=== PATIENT | female | born 1990 | race Caucasian/White ===

== ENCOUNTER → 2016-10-20 | Outpatient (CLI) | payer BC ==
[2016-10-22 01:36] LABS: CHLAMYDIA TRACH RNA*** NOT DETECTED (NOT DETECTED); GC (NEIS GONORRHOEAE)RNA** NOT DETECTED (NOT DETECTED)
== END | disposition home or self-care (01) ==
LOC: C.LABSPEC 12:06
PROVIDERS: ATTEND Physician Assistant
DX: Z01.419 Encounter for gynecological examination (general) (routine) without abnormal findings (principal)

== ENCOUNTER → 2016-10-20 | Outpatient (CLI) | payer BC | END | disposition home or self-care (01) | LOC: C.PAPS 13:30 | PROVIDERS: ATTEND Physician Assistant | DX: Z01.419 Encounter for gynecological examination (general) (routine) without abnormal findings (principal) ==

== ENCOUNTER 2017-05-19 10:46 | Emergency (ER) | payer BC, OTHER ==
[~2017-05-19] VITALS: Ht 157.5 cm; Wt 62.4 kg
[2017-05-19 10:56] VITALS: TEMP 36.7; Ht 157.5 cm; Wt 62.4 kg
[2017-05-19] MEDS ORDERED: CLR10 PO (11:22)
[2017-05-19 11:29] LABS: BASO % 0.3 %; BASO ABS # 0.02 K/uL (0-0.2); EOS % 0.9 %; EOS ABS # 0.06 K/uL (0-0.5); HEMATOCRIT 41.3 % (37-47); IG# 0.01 K/uL (0.00-0.02); LYMPH % 34.5 %; LYMPH ABS # 2.27 K/uL (1.2-3.4); MEAN CELL VOLUME 88.6 fL (80-100); MEAN CORPUSCULAR HGB CONC 33.9 g/dl (32-36); MONO % 5.5 %; MONO ABS # 0.36 K/uL (0.11-0.59); NEUT % 58.6 %; NEUT ABS # 3.86 K/uL (1.4-6.5); PLATELET COUNT 237 K/uL (130-400); RED CELL DISTRIBUTION WIDTH SD 41.9 fL (36.4-46.3); WHITE BLOOD COUNT 6.58 K/uL (4.8-10.8)
--- NOTE | 2017-05-19 11:29 | EMERGENCY ROOM VISIT NOTE ---
History First contact with patient: 11:06 Chief Complaint: FLANK PAIN Stated Complaint: ABDOMINAL PAIN Nursing Triage Summary: pt reports she went to urgent care for abd pain sent here for blood in urine and possible kidney stone eval History of Present Illness The patient is a 26 year old female who presents to the Emergency Room with complaints of right lower quadrant abdominal pain which began this morning. She states she was concerned about appendicitis, as her boyfriend had appendicitis in the past, so she went to urgent care to be evaluated. At urgent care a urinalysis was performed, which was positive for blood. The urgent care was concerned for a possible kidney stone, so the patient was sent here to the emergency department. The patient describes the pain as dull, and states it is mostly located in the right lower quadrant. She states there is no pain on palpation, but when asked if she is experiencing back pain, she states she is experiencing some upper left sided back pain, which she attributes to shoveling snow. The pain she is experiencing in the back is up near her shoulder blades. She denies history of kidney stones, and states she has had no urinary symptoms including burning, urinary frequency, or blood in the urine. She has not recently been ill, has not had a fever, has not had any changes in bowel movements, cough, chest pain, or dyspnea. The patient states the pain is intermittent, worse with movement and better with rest and sitting still. Her last menstrual period ended on May 10. The patient is sexually active, but is not on control. She states there is no chance for . Review of Systems A complete 10 point review of systems was reviewed with the patient with pertinent positives and negatives as per history of present illness. All else were negative. Past Medical/Surgical History Allergic rhinitis Social History Smoking Status: Never Smoker Smokeless Tobacco Use: No Alcohol Use: none Drug Use: none Marital Status: in relationship Housing Status: lives with significant other Occupation Status: employed Current/Historical Medications Scheduled Loratadine (Claritin), 10 MG PO DAILY Allergies None Physical Exam Vital Signs Date Time Temp Pulse Resp B/P (MAP) Pulse Ox O2 Delivery O2 Flow Rate FiO2 05/19/17 13:59 98 98 05/19/17 12:37 71 16 137/82 99 Room Air 05/19/17 10:56 36.7 86 18 137/86 100 Room Air Physical Exam VITALS: Vitals are noted on the nurse's note and reviewed by myself. Vital signs stable. GENERAL: This is a 26-year-old white female, in no acute distress, nondiaphoretic, well-developed well-nourished. SKIN: The skin was without rashes, erythema, edema, or bruising. There is no tenting of the skin. Capillary reflex less than 2 seconds. HEAD: Normocephalic atraumatic. EARS: External auditory canals clear, tympanic membranes pearly sanchez without erythema or effusion bilaterally. EYES: Pupils equal round and reactive to light and accommodation. Conjunctivae without injection, sclerae without icterus. Extraocular movements intact. NOSE: Patent, turbinates without inflammation or discharge. No sinus tenderness. MOUTH: Mucous membranes moist. Tonsils are not enlarged. Pharynx without erythema or exudate. Uvula midline. Airway patent. Tongue does not deviate. NECK: Supple without nuchal rigidity. No lymphadenopathy. No thyromegaly. Cervical spine is nontender. No JVD. HEART: Regular rate and rhythm without murmurs gallops or rubs. LUNGS: Clear to auscultation bilaterally without wheezes, rales or rhonchi. No dullness to percussion. No retractions or accessory muscle use. ABDOMEN: Positive bowel sounds x 4. Normal tympanic percussion. Soft, nontender, without masses or organomegaly. Newamn sign negative. No guarding or rebound tenderness. Negative Rovsing's. Mild left CVA tenderness, but no tenderness in the right flank. MUSCULOSKELETAL: No muscle atrophy, erythema, or edema noted. Full range of motion without joint tenderness in all extremities. No tenderness to palpation. Normal gait. Strength 5/5 throughout. NEURO: Patient was alert and oriented to person place and time. Normal sensation to light and sharp touch. Deep tendon reflexes 2+ throughout. No focal neurological deficits. Medical Decision & Procedures ER Provider Diagnostic Interpretation: Urine dipstick was positive for blood. No signs of infection. Urine test was negative. CBC was without leukocytosis, anemia, thrombocytopenia. PRP did not show any significant renal, hepatic, electrolyte abnormalities. Lipase was normal. KUB CLINICAL HISTORY: RLQ, left flank pain, hematuria flank pain. Hematuria. COMPARISON STUDY: No previous studies for comparison. FINDINGS: The soft tissues, psoas shadows, renal outlines and intestinal gas pattern appear normal. There is no evidence for bowel obstruction. No abnormal abdominal calcifications are seen. IMPRESSION: Normal study. The above report was generated using voice recognition software. It may contain grammatical, syntax or spelling errors. Electronically signed by: Leo Vargas M.D. 05/19/2017 11:55 AM Dictated Date/Time: 05/19/2017 11:[address] SCAN OF THE ABDOMEN AND PELVIS WITHOUT CONTRAST CLINICAL HISTORY: hematuria, RLQ pain COMPARISON STUDY: No previous studies for comparison. TECHNIQUE: CT scan of the abdomen and pelvis was performed from the lung bases to the proximal femurs. Images are reviewed in the axial, sagittal, and coronal planes. IV contrast was not administered for this examination. A dose lowering technique was utilized adhering to the principles of ALARA. CT DOSE: 480.10 mGy.cm FINDINGS: Lower chest: The heart is normal in size and configuration, without pericardial effusion. The lung bases and pleural spaces are clear. Liver: The unenhanced liver is normal in size, contour, and attenuation. There is no intrahepatic biliary ductal dilatation. Gallbladder: Unremarkable. Spleen: Normal in size and attenuation. Pancreas: Unremarkable. Adrenal glands: Unremarkable. Kidneys: No renal ureteral or bladder calculi are visualized. There is mild fullness of the right renal collecting system. Given the clinical history this could be secondary to a recently passed calculus. Bowel: There are no transition zones indicate bowel obstruction. The appendix appears normal. There is no acute diverticulitis. There is moderate colonic stool. Peritoneum: There is trace free pelvic fluid likely physiologic. Vasculature: The abdominal aorta is normal in course and caliber. Adenopathy: None. Pelvic viscera: The bladder, and pelvic viscera are unremarkable. Skeletal structures: No destructive osseous lesions are seen. IMPRESSION: 1. No evidence of bowel obstruction. No evidence of free air 2. Normal appendix 3. No renal, ureteral, or bladder calculi identified 4. Mild fullness the right renal collecting system. Given the clinical history, this potentially could be secondary to a recently passed calculus Electronically signed by: Roni Pinto M.D. 05/19/2017 12:48 PM Dictated Date/Time: 05/19/2017 12:44 PM Laboratory Results 05/19/17 11:12 Red Blood Count 4.66, Mean Corpuscular Volume 88.6, Mean Corpuscular Hemoglobin 30.0, Mean Corpuscular Hemoglobin Concent 33.9, Mean Platelet Volume 11.0, Neutrophils (%) (Auto) 58.6, Lymphocytes (%) (Auto) 34.5, Monocytes (%) (Auto) 5.5, Eosinophils (%) (Auto) 0.9, Basophils (%) (Auto) 0.3, Neutrophils # (Auto) 3.86, Lymphocytes # (Auto) 2.27, Monocytes # (Auto) 0.36, Eosinophils # (Auto) 0.06, Basophils # (Auto) 0.02 05/19/17 11:12 Test 05/19/17 11:12 White Blood Count 6.58 K/uL (4.8-10.8) Red Blood Count 4.66 M/uL (4.2-5.4) Hemoglobin 14.0 g/dL (12.0-16.0) Hematocrit 41.3 % (37-47) Mean Corpuscular Volume 88.6 fL (80-100) Mean Corpuscular Hemoglobin 30.0 pg (25-34) Mean Corpuscular Hemoglobin Concent 33.9 g/dl (32-36) Platelet Count 237 K/uL (130-400) Mean Platelet Volume 11.0 fL (7.4-10.4) Neutrophils (%) (Auto) 58.6 % Lymphocytes (%) (Auto) 34.5 % Monocytes (%) (Auto) 5.5 % Eosinophils (%) (Auto) 0.9 % Basophils (%) (Auto) 0.3 % Neutrophils # (Auto) 3.86 K/uL (1.4-6.5) Lymphocytes # (Auto) 2.27 K/uL (1.2-3.4) Monocytes # (Auto) 0.36 K/uL (0.11-0.59) Eosinophils # (Auto) 0.06 K/uL (0-0.5) Basophils # (Auto) 0.02 K/uL (0-0.2) RDW Standard Deviation 41.9 fL (36.4-46.3) RDW Coefficient of Variation 13.0 % (11.5-14.5) Immature Granulocyte % (Auto) 0.2 % Immature Granulocyte # (Auto) 0.01 K/uL (0.00-0.02) Anion Gap 9.0 mmol/L (3-11) Est Creatinine Clear Calc Drug Dose 132.2 ml/min Estimated GFR () > 150.0 Estimated GFR (Non- 129.8 BUN/Creatinine Ratio 17.1 (10-20) Calcium Level 9.1 mg/dl (8.5-10.1) Total Bilirubin 0.4 mg/dl (0.2-1) Aspartate Amino Transf (AST/SGOT) 20 U/L (15-37) Alanine Aminotransferase (ALT/SGPT) 21 U/L (12-78) Alkaline Phosphatase 72 U/L (45-117) Total Protein 7.9 gm/dl (6.4-8.2) Albumin 4.2 gm/dl (3.4-5.0) Globulin 3.7 gm/dl (2.5-4.0) Albumin/Globulin Ratio 1.1 (0.9-2) Lipase 91 U/L (73-393) ED Course The patient was seen and evaluated as above. IV access obtained, labs drawn. I did offer pain medication and/or anti-emetics, the patient declines. KUB was ordered and performed. This was not specific for obvious ureteral stone. I discussed this finding with the patient at bedside, and did offer further imaging with CT scan. Because the patient has not had a history of kidney stones and the pain was in the right lower quadrant, she does wish to proceed with imaging to evaluate for possible stone. CT scan was ordered and performed. I discussed the results with the patient at bedside. I discussed follow-up care and outpatient management. I did offer pain medication, and the patient declines. Discharge instructions reviewed, and the patient was discharged home in good condition. Medical Decision Etiologies such as renal colic, appendicitis, diverticulitis, mesenteric ischemia, aortic pathology, infections, inflammatory bowel disease, PUD, biliary pathology, UTI, as well as others were entertained. This is a 26-year-old female patient presents to the emergency department today complaining of right lower quadrant abdominal pain which began this morning, but has improved since she has arrived to the emergency department. She was seen at urgent care, and hematuria was noted on urinalysis. Here in the emergency department, the patient states she is experiencing significantly less pain than she was experiencing this morning. CT scan findings were consistent with possible recently passed stone. I discussed this with the patient, and she states this does make sense based on her symptoms and the progression this morning. The patient will be treated symptomatically and provided with a urine strainer in case she has not yet passed the stone through the bladder and urethra. She was encouraged to follow up outpatient with her PCP for ongoing management and return for significantly worsening symptoms. Medication Reconcilliation Current Medication List: was personally reviewed by me Blood Pressure Screening Patient's blood pressure: Normal blood pressure Impression Primary Impression: Right lower quadrant abdominal pain Additional Impression: Renal colic Departure Information Dispostion Home / Self-Care Condition GOOD Referrals Stefani BOOKER M.D. (PCP) Patient Instructions ED Stone Renal Passed, [facility] Additional Instructions You have been treated in the Emergency Department today for a Kidney Stone ( Nephrolithiasis). Imaging did show some signs that you did are very likely passed stone from the ureter at least into the bladder. For pain control, you can use the following [id number] medicines (if >12 yo): Ibuprofen(Motrin, Advil) may be used for fever or pain. Use 600mg every six hours as needed. Take with food. Avoid using more than 2400mg in a 24 hour period. Do not use 2400mg per day for more than three consecutive days without physician direction. Prolonged inappropriate use can lead to stomach upset or ulcers. (AND/OR) Acetaminophen(Tylenol) may be used for fever or pain. Use 1000mg every six hours as needed. Avoid using more than 3000mg in a 24 hour period. You have been provided a strainer and specimen collection cup. You should strain your urine to collect any passed stones. Your stones can be placed into the specimen cup and taken to your Urologist for further evaluation. You should follow-up with your PCP regarding the pain and if you continue to experience discomfort and do not notice a passed stone in the urine. Return to the Emergency Department if your symptoms persist despite the treatment plan outlined above or if you develop the following symptoms: intractable pain, fever, chills, or large amounts of blood in your urine. Problem Qualifiers
[2017-05-19 11:48] LABS: ALBUMIN 4.2 gm/dl (3.4-5.0); ALT/SGPT 21 U/L (12-78); BLOOD UREA NITROGEN 10 mg/dl (7-18); CALCIUM 9.1 mg/dl (8.5-10.1); CARBON DIOXIDE 25 mmol/L (21-32); CREATININE 0.57 mg/dl (0.60-1.20); GLUCOSE 87 mg/dl (70-99); LIPASE 91 U/L (73-393); POTASSIUM 3.9 mmol/L (3.5-5.1); SODIUM 138 mmol/L (136-145)
[2017-05-19 11:51] LABS: ALKALINE PHOSPHATASE 72 U/L (45-117); AST/SGOT 20 U/L (15-37); TOTAL PROTEIN 7.9 gm/dl (6.4-8.2)
--- NOTE | 2017-05-19 11:56 | DIAGNOSTIC IMAGING REPORT ---
KUB CLINICAL HISTORY: RLQ, left flank pain, hematuria flank pain. Hematuria. COMPARISON STUDY: No previous studies for comparison. FINDINGS: The soft tissues, psoas shadows, renal outlines and intestinal gas pattern appear normal. There is no evidence for bowel obstruction. No abnormal abdominal calcifications are seen. IMPRESSION: Normal study. The above report was generated using voice recognition software. It may contain grammatical, syntax or spelling errors. Electronically signed by: Leo Vargas M.D. 05/19/2017 11:55 AM Dictated Date/Time: 05/19/2017 11:54 AM
[2017-05-19 12:37] VITALS: BP 137/82
--- NOTE | 2017-05-19 12:49 | DIAGNOSTIC IMAGING REPORT ---
CT SCAN OF THE ABDOMEN AND PELVIS WITHOUT CONTRAST CLINICAL HISTORY: hematuria, RLQ pain COMPARISON STUDY: No previous studies for comparison. TECHNIQUE: CT scan of the abdomen and pelvis was performed from the lung bases to the proximal femurs. Images are reviewed in the axial, sagittal, and coronal planes. IV contrast was not administered for this examination. A dose lowering technique was utilized adhering to the principles of ALARA. CT DOSE: 480.10 mGy.cm FINDINGS: Lower chest: The heart is normal in size and configuration, without pericardial effusion. The lung bases and pleural spaces are clear. Liver: The unenhanced liver is normal in size, contour, and attenuation. There is no intrahepatic biliary ductal dilatation. Gallbladder: Unremarkable. Spleen: Normal in size and attenuation. Pancreas: Unremarkable. Adrenal glands: Unremarkable. Kidneys: No renal ureteral or bladder calculi are visualized. There is mild fullness of the right renal collecting system. Given the clinical history this could be secondary to a recently passed calculus. Bowel: There are no transition zones indicate bowel obstruction. The appendix appears normal. There is no acute diverticulitis. There is moderate colonic stool. Peritoneum: There is trace free pelvic fluid likely physiologic. Vasculature: The abdominal aorta is normal in course and caliber. Adenopathy: None. Pelvic viscera: The bladder, and pelvic viscera are unremarkable. Skeletal structures: No destructive osseous lesions are seen. IMPRESSION: 1. No evidence of bowel obstruction. No evidence of free air 2. Normal appendix 3. No renal, ureteral, or bladder calculi identified 4. Mild fullness the right renal collecting system. Given the clinical history, this potentially could be secondary to a recently passed calculus Electronically signed by: Roni Pinto M.D. 05/19/2017 12:48 PM Dictated Date/Time: 05/19/2017 12:44 PM
[2017-05-19 13:59] VITALS: PULSE 98; O2SAT 98
== END 2017-05-19 14:00 | disposition home or self-care (01) ==
LOC: C.EDB 10:47 → C.EDC 14:00
DX: N23 Unspecified renal colic (principal); R10.31 Right lower quadrant pain

== ENCOUNTER 2017-07-29 21:55 | Emergency (ER) | payer OTHER ==
[~2017-07-29] VITALS: Ht 157.5 cm; Wt 58.5 kg
[~2017-07-29 21:55] MED LIST: CLR10 PO
[2017-07-29 21:57] VITALS: TEMP 36.5; Ht 157.5 cm; Wt 58.5 kg
[2017-07-29] MEDS ORDERED: LORAZEPAM 2 MG/ML 1 ML VIAL IV STA (22:17)
[2017-07-29 22:31] LABS: BASO % 0.1 %; BASO ABS # 0.01 K/uL (0-0.2); EOS % 1.4 %; EOS ABS # 0.11 K/uL (0-0.5); HEMATOCRIT 40.1 % (37-47); IG# 0.02 K/uL (0.00-0.02); LYMPH % 37.9 %; LYMPH ABS # 3.05 K/uL (1.2-3.4); MEAN CELL VOLUME 86.6 fL (80-100); MEAN CORPUSCULAR HEMOGLOBIN 30.2 pg (25-34); MEAN CORPUSCULAR HGB CONC 34.9 g/dl (32-36); MEAN PLATELET VOLUME 11.1 fL (7.4-10.4); MONO % 5.6 %; MONO ABS # 0.45 K/uL (0.11-0.59); NEUT % 54.8 %; NEUT ABS # 4.41 K/uL (1.4-6.5); PLATELET COUNT 235 K/uL (130-400); RED CELL DISTRIBUTION WIDTH CV 12.8 % (11.5-14.5); RED CELL DISTRIBUTION WIDTH SD 40.6 fL (36.4-46.3); WHITE BLOOD COUNT 8.05 K/uL (4.8-10.8)
[2017-07-29] MEDS ORDERED: PRENTAB26 PO (22:36)
--- NOTE | 2017-07-29 22:45 | DIAGNOSTIC IMAGING REPORT ---
SINGLE VIEW CHEST CLINICAL HISTORY: Atypical chest pain. FINDINGS: An AP, portable, upright chest radiograph is obtained. No prior studies are available for comparison at the time of dictation. The cardiomediastinal silhouette is unremarkable. The lungs and pleural spaces are clear. No pneumothorax is seen. The bony thorax is grossly intact. IMPRESSION: No active disease in the chest. Electronically signed by: William Yang M.D. 07/29/2017 10:43 PM Dictated Date/Time: 07/29/2017 10:43 PM
[2017-07-29 22:48] LABS: ALBUMIN 4.3 gm/dl (3.4-5.0); ALT/SGPT 22 U/L (12-78); BLOOD UREA NITROGEN 18 mg/dl (7-18); CALCIUM 8.9 mg/dl (8.5-10.1); CARBON DIOXIDE 27 mmol/L (21-32); CREATININE 0.77 mg/dl (0.60-1.20); GLUCOSE 120 mg/dl (70-99); LIPASE 131 U/L (73-393); POTASSIUM 3.4 mmol/L (3.5-5.1); SODIUM 136 mmol/L (136-145)
[2017-07-29 22:53] LABS: ALKALINE PHOSPHATASE 89 U/L (45-117); AST/SGOT 22 U/L (15-37); TOTAL PROTEIN 8.1 gm/dl (6.4-8.2)
[2017-07-29] MEDS ORDERED: POTASSIUM CHLORIDE 10 MEQ TABCR PO STA (22:57)
[2017-07-29] MEDS ORDERED: KETOROLAC TROMETHAMINE 30 MG/ML VIAL IV STA (23:00)
[2017-07-29 23:17] VITALS: BP 129/85; PULSE 82; O2SAT 100
--- NOTE | 2017-07-29 23:18 | EMERGENCY ROOM VISIT NOTE ---
History First contact with patient: 22:03 Chief Complaint: CARDIAC ASSESSMENT Stated Complaint: BACK/CHEST PAIN Nursing Triage Summary: Pt reports mid sternal chest pain that has been on and off for about 1 and a half weeks. She states, "It almost feels like I strained a muscle but it kept coming back." Pt reports upper back pain that started yesterday. History of Present Illness The patient is a 27 year old female who presents to the Emergency Room with complaints of intermittent split-second chest pain for the past week and a half is now developed occasional back pain. Patient states she has been underneath more stress lately at work. Patient does not smoke. No control. No recent travel. No family history of heart disease or blood clots. Patient states nothing makes her symptoms better or worse. Patient denies prolonged chest pain, exertional chest pain, dyspnea, fever, chills, abdominal pain, leg pain or swelling, recent illness. No drug use. Review of Systems An 10 system review of systems was completed with positives and pertinent negatives listed in the HPI. Past Medical/Surgical History none Social History Smoking Status: Never Smoker Alcohol Use: none Drug Use: none Marital Status: in relationship Housing Status: lives with significant other Occupation Status: employed Current/Historical Medications Scheduled Loratadine (Claritin), 10 MG PO DAILY Multivit/Min/Iron/Fol Ac/Pren ( Vitamin), 1 TAB PO DAILY Physical Exam Vital Signs Date Time Temp Pulse Resp B/P (MAP) Pulse Ox O2 Delivery O2 Flow Rate FiO2 07/29/17 22:58 82 17 129/85 100 Room Air 07/29/17 22:09 82 07/29/17 22:03 Room Air 07/29/17 21:57 36.5 88 18 153/92 98 Room Air Physical Exam VITALS: Vitals are noted on the nurse's note and reviewed by myself. Vital signs stable GENERAL: Pleasant female, in no acute distress, nondiaphoretic, well-developed well-nourished. SKIN: The skin was without rashes, erythema, edema, or bruising. There is no tenting of the skin. Capillary reflex less than 2 seconds. HEAD: Normocephalic atraumatic. EARS: External auditory canals clear, tympanic membranes pearly sanchez without erythema or effusion bilaterally. EYES: Pupils equal round and reactive to light and accommodation. Conjunctivae without injection, sclerae without icterus. Extraocular movements intact. NOSE: Patent, turbinates without inflammation or discharge. MOUTH: Mucous membranes moist. Pharynx without erythema or exudate. Uvula midline. Airway patent. Tongue does not deviate. NECK: Supple without nuchal rigidity. No lymphadenopathy. No thyromegaly. Cervical spine is nontender. No JVD. HEART: Regular rate and rhythm without murmurs gallops or rubs. LUNGS: Clear to auscultation bilaterally without wheezes, rales or rhonchi. No retractions or accessory muscle use. ABDOMEN: Positive bowel sounds x 4. Normal tympanic percussion. Soft, nontender, without masses or organomegaly. Newman sign negative. No guarding or rebound tenderness. No CVA tenderness MUSCULOSKELETAL: No muscle atrophy, erythema, or edema noted. NEURO: Patient was alert and oriented to person place and time. Normal sensation to light and sharp touch. No focal neurological deficits. Medical Decision & Procedures Laboratory Results 07/29/17 22:15 Red Blood Count 4.63, Mean Corpuscular Volume 86.6, Mean Corpuscular Hemoglobin 30.2, Mean Corpuscular Hemoglobin Concent 34.9, Mean Platelet Volume 11.1, Neutrophils (%) (Auto) 54.8, Lymphocytes (%) (Auto) 37.9, Monocytes (%) (Auto) 5.6, Eosinophils (%) (Auto) 1.4, Basophils (%) (Auto) 0.1, Neutrophils # (Auto) 4.41, Lymphocytes # (Auto) 3.05, Monocytes # (Auto) 0.45, Eosinophils # (Auto) 0.11, Basophils # (Auto) 0.01 07/29/17 22:15 Test 07/29/17 22:15 07/29/17 22:24 White Blood Count 8.05 K/uL (4.8-10.8) Red Blood Count 4.63 M/uL (4.2-5.4) Hemoglobin 14.0 g/dL (12.0-16.0) Hematocrit 40.1 % (37-47) Mean Corpuscular Volume 86.6 fL (80-100) Mean Corpuscular Hemoglobin 30.2 pg (25-34) Mean Corpuscular Hemoglobin Concent 34.9 g/dl (32-36) Platelet Count 235 K/uL (130-400) Mean Platelet Volume 11.1 fL (7.4-10.4) Neutrophils (%) (Auto) 54.8 % Lymphocytes (%) (Auto) 37.9 % Monocytes (%) (Auto) 5.6 % Eosinophils (%) (Auto) 1.4 % Basophils (%) (Auto) 0.1 % Neutrophils # (Auto) 4.41 K/uL (1.4-6.5) Lymphocytes # (Auto) 3.05 K/uL (1.2-3.4) Monocytes # (Auto) 0.45 K/uL (0.11-0.59) Eosinophils # (Auto) 0.11 K/uL (0-0.5) Basophils # (Auto) 0.01 K/uL (0-0.2) RDW Standard Deviation 40.6 fL (36.4-46.3) RDW Coefficient of Variation 12.8 % (11.5-14.5) Immature Granulocyte % (Auto) 0.2 % Immature Granulocyte # (Auto) 0.02 K/uL (0.00-0.02) Anion Gap 7.0 mmol/L (3-11) Est Creatinine Clear Calc Drug Dose 88.4 ml/min Estimated GFR () 124.4 Estimated GFR (Non- 107.3 BUN/Creatinine Ratio 23.2 (10-20) Calcium Level 8.9 mg/dl (8.5-10.1) Total Bilirubin 0.3 mg/dl (0.2-1) Direct Bilirubin 0.1 mg/dl (0-0.2) Aspartate Amino Transf (AST/SGOT) 22 U/L (15-37) Alanine Aminotransferase (ALT/SGPT) 22 U/L (12-78) Alkaline Phosphatase 89 U/L (45-117) Troponin I < 0.015 ng/ml (0-0.045) Total Protein 8.1 gm/dl (6.4-8.2) Albumin 4.3 gm/dl (3.4-5.0) Lipase 131 U/L (73-393) Human Chorionic Gonadotropin, Qual NEG (NEG) Bedside D-Dimer 268 ng/mlFEU (0-450) Bedside Troponin I < 0.030 ng/ml (0-0.045) Medications Administered Medications (Trade) Dose Ordered Sig/[place] Route Start Time Stop Time Status Last Admin Dose Admin Lorazepam (Ativan Inj) 1 mg NOW STAT IV 07/29/17 22:17 07/29/17 22:18 DC 07/29/17 22:33 1 MG Potassium Chloride (Klor-Con M10) 10 meq NOW STAT PO 07/29/17 22:57 07/29/17 22:58 DC 07/29/17 23:07 10 MEQ Ketorolac Tromethamine (Toradol Inj) 15 mg NOW STAT IV 07/29/17 23:00 07/29/17 23:01 DC 07/29/17 23:07 15 MG ED Course Prior records/ancillary studies reviewed. Triage Nursing notes reviewed. Additional history obtained from boyfriend. The patient's history was concerning for chest pain. Differential diagnosis: Etiologies such as cardiac ischemia, aortic dissection, pulmonary embolism, pneumonia, pneumothorax, musculoskeletal, infections, pericarditis, myocarditis , esophageal rupture, gastrointestinal, as well as others were entertained. Physical examination: As above. ER treatment provided: Ativan, Toradol On reassessment the patient felt better. Diagnostic interpretation by me: The electrocardiogram was negative for pathologic change. Normal sinus, normal intervals, no acute ST-T wave changes, occasional sinus arrhythmia. Impression normal sinus rhythm with occasional sinus arrhythmia interpreted by myself The labs revealed negative troponin. Negative d-dimer. Hypokalemia this is replaced orally Imaging studies: Chest x-ray with no acute consolidation, pneumothorax free of my interpretation HEART SCORE: Hx: high/mod/low suspicion: 0 ECG: ST depression/nonspecific changes/normal: 0 Age: Greater than 65/45-64/less than 45: 0 Risk factors: (Hypertension, hyperlipidemia, diabetes, coronary disease, tobacco use, cocaine use): 0 Troponin: Greater than 2 times normal limits/1-2 times normal limits/normal: 0 Total: 0 Exam and history seem consistent with noncardiac chest pain. Patient had a normal EKG. Normal troponin. Negative d-dimer. Patient has been underneath more stress lately. She felt much better to be medicated as above. She is advised to rest, decrease stress, and a follow-up family can a few days or here in the ER sooner for chest pain that is prolonged, difficulty breathing, worsening signs or symptoms or as needed. Patient's heart score is 0. By the evaluation outlined above emergent etiologies such as cardiac ischemia, aortic dissection, pulmonary embolism, pneumonia, pneumothorax, infections, pericarditis, myocarditis, gastrointestinal, as well as others were deemed relatively unlikely. The pt informed about the findings as listed above. All questions were answered and pleased with the treatment. Return instructions were outlined and the patient was discharged in stable condition. Case reviewed with my attending Referral: The patient was referred back to primary care physician for follow-up in 2 to 3 days for a recheck of the current condition. The chart was completed utilizing [employer] Speech voice recognition software. Grammatical errors, random word insertions, pronoun errors, and incomplete sentences are an occassional consequence of this system due to software limitations, ambient noise, and hardware issues. Any formal questions or concerns about the content, text, or information contained within the body of this dictation should be directly addressed to the physician assistant passenger locomotive engineer for clarification. Medical Decision As above Medication Reconcilliation Current Medication List: was personally reviewed by me Blood Pressure Screening Patient's blood pressure: Normal blood pressure Impression Primary Impression: Chest pain in adult Additional Impression: Hypokalemia Departure Information Dispostion Home / Self-Care Condition GOOD Forms IMPORTANT VISIT INFORMATION Patient Instructions Chest Pain - [facility], [facility] Additional Instructions Ibuprofen(Motrin, Advil) may be used for fever or pain. Use 600mg every six hours as needed. Take with food. Avoid using more than 2400mg in a 24 hour period. Do not use 2400mg per day for more than three consecutive days without physician direction. Prolonged inappropriate use can lead to stomach upset or ulcers. (AND/OR) Acetaminophen(Tylenol) may be used for fever or pain. Use 1000mg every six hours as needed. Avoid using more than 3000mg in a 24 hour period. Rest and drink plenty of fluids as tolerated. Continue current medications. Avoid strenuous activities and anything that worsens your pain. Resume normal activities once your symptoms resolve. Return to the ER immediately for worsening or persistent chest pain, abdominal pain, vomiting, fevers, chest pains, difficulty breathing, worsening of your condition, or as needed. Follow up with your primary physician in 2-3 days for a recheck of your current condition. Problem Qualifiers
== END 2017-07-29 23:18 | disposition home or self-care (01) ==
LOC: C.EDB 21:56 → C.EDC 23:18
DX: R07.9 Chest pain, unspecified (principal); E87.6 Hypokalemia

== ENCOUNTER 2017-08-22 20:22 | Emergency (ER) | payer OTHER ==
[~2017-08-22] VITALS: Ht 157.5 cm; Wt 59.5 kg
[2017-08-22 20:31] VITALS: TEMP 36.8; Ht 157.5 cm; Wt 59.5 kg
[2017-08-22] MEDS ORDERED: FLUO10CA48 PO (21:12)
[2017-08-22] MEDS ORDERED: PRVHFAIN INH (21:12)
[2017-08-22 21:36] LABS: BASO % 0.2 %; BASO ABS # 0.02 K/uL (0-0.2); EOS % 2.5 %; EOS ABS # 0.21 K/uL (0-0.5); HEMOGLOBIN 14.1 g/dL (12.0-16.0); IG# 0.01 K/uL (0.00-0.02); LYMPH % 37.6 %; LYMPH ABS # 3.21 K/uL (1.2-3.4); MEAN CELL VOLUME 87.8 fL (80-100); MEAN CORPUSCULAR HEMOGLOBIN 30.2 pg (25-34); MEAN CORPUSCULAR HGB CONC 34.4 g/dl (32-36); MEAN PLATELET VOLUME 11.2 fL (7.4-10.4); MONO % 4.7 %; NEUT % 54.9 %; NEUT ABS # 4.69 K/uL (1.4-6.5); PLATELET COUNT 230 K/uL (130-400); RED CELL DISTRIBUTION WIDTH CV 13.3 % (11.5-14.5); RED CELL DISTRIBUTION WIDTH SD 42.4 fL (36.4-46.3); WHITE BLOOD COUNT 8.54 K/uL (4.8-10.8)
[2017-08-22 21:50] LABS: PTT PATIENT 26.4 SECONDS (21.0-31.0)
[2017-08-22 21:53] LABS: CALCIUM 9.2 mg/dl (8.5-10.1); CREATININE 0.95 mg/dl (0.60-1.20); POTASSIUM 3.5 mmol/L (3.5-5.1)
--- NOTE | 2017-08-22 21:56 | DIAGNOSTIC IMAGING REPORT ---
CHEST 2 VIEWS ROUTINE CLINICAL HISTORY: Atypical chest pain COMPARISON STUDY: 07/29/2017 FINDINGS: The cardiac and mediastinal contours are normal. There is no evidence of focal pulmonary consolidation. There is no evidence of failure. No pleural effusions are visualized.[ IMPRESSION: No active disease in the chest. Electronically signed by: Roni Pinto M.D. 08/22/2017 9:55 PM Dictated Date/Time: 08/22/2017 9:54 PM
[2017-08-22] MEDS ORDERED: KETOROLAC TROMETHAMINE 30 MG/ML VIAL IV STA (22:08)
[2017-08-22] MEDS ORDERED: PRENTAB26 PO (22:36)
[2017-08-22 22:54] VITALS: BP 125/91; PULSE 79; O2SAT 98
--- NOTE | 2017-08-23 00:23 | EMERGENCY ROOM VISIT NOTE ---
History Report prepared by Dale: Nuno Vivar Under the Supervision of: Dr. Matias Cunningham M.D. First contact with patient: 20:48 Chief Complaint: CHEST PAIN Stated Complaint: CHEST PAIN, NUMB ARM Nursing Triage Summary: pt c/o cp x15 mintues with left arm numbness. states pain is "a little better now." denies sob. alert and oriented x4, breathing WNL. History of Present Illness The patient is a 27 year old female who presents to the Emergency Room with complaints of persistent left-sided chest pain that started around 50 minutes ago. She states that she was just sitting around when the pain first started, and the pain was sharp at first, and is now more dull with some tightness. The patient states that she had some tingling in her left hand and arm when the pain first started. She notes that the pain is getting a little better now. The patient says that this does not feel like her chest pain episode in June, as that time the pain was in the center of her chest. She notes that she has had a dry cough for a "little while", and she currently feels a bit clammy and shaky. The patient says that she did not do any physical labor yesterday, and she does not normally work out, although she has been trying to do yoga to relax. She denies any shortness of breath, fevers, leg pain, or leg swelling. She notes that she is not on control, and she does not smoke or use cocaine. The patient says that she has no chronic medical conditions, and has no notable family history of blood clots at an early age. She denies any chance of . Source of History: patient Onset: 50 minutes ago Position: chest (left) Quality: sharp, dull, other (tight) Timing: other (persistent) Associated Symptoms: + cough, No fevers, No SOB Note: Associated symptoms: Left hand and arm tingling. Clammy, a bit shaky. Denies leg pain or leg swelling. Review of Systems See HPI for pertinent positives & negatives. A total of 10 systems reviewed and were otherwise negative. Past Medical & Surgical Medical Problems: (1) No chronic diseases present Family History FHx: gallbladder disease Hypertension Kidney disease Social History Smoking Status: Never Smoker Alcohol Use: none Drug Use: none Marital Status: in relationship Housing Status: lives with significant other Occupation Status: employed Current/Historical Medications Scheduled Fluoxetine (Prozac), 10 MG PO DAILY Loratadine (Claritin), 10 MG PO DAILY Multivit/Min/Iron/Fol Ac/Pren ( Vitamin), 1 TAB PO DAILY Scheduled PRN Albuterol (Ventolin Hfa), 2 PUFFS INH Q4H PRN for Rescue/Asthma Symptoms Allergies Coded Allergies: No Known Allergies (Unverified , 07/29/17) Physical Exam Vital Signs Date Time Temp Pulse Resp B/P (MAP) Pulse Ox O2 Delivery O2 Flow Rate FiO2 08/22/17 22:54 79 125/91 98 08/22/17 22:18 78 17 129/80 98 Room Air 08/22/17 21:11 77 08/22/17 20:34 Room Air 08/22/17 20:31 36.8 88 18 145/87 100 Room Air Physical Exam Constitutional: Vital signs reviewed. Eyes: Pupils are equal round reactive to light. Conjunctiva are noninjected. ENT: Pharynx is clear without erythema or exudate. Mucous membranes are moist. Neck supple without meningeal signs. Respiratory: Clear to auscultation bilaterally. Breath sounds are equal bilaterally. Cardiovascular: Regular rate and rhythm. No rubs or gallops. GI: Soft, nondistended and nontender. Bowel sounds are present. Musculoskeletal: Some chest wall tenderness on the left side. No peripheral edema. No lower extremity tenderness. Integumentary: No cyanosis. Neurological: The patient is awake and alert. No focal deficits. Psychiatric: Normal affect. Medical Decision & Procedures ER Provider Diagnostic Interpretation: X-ray results as stated below per interpretation by me and the radiologist: CHEST 2 VIEWS ROUTINE CLINICAL HISTORY: Atypical chest pain COMPARISON STUDY: 07/29/2017 FINDINGS: The cardiac and mediastinal contours are normal. There is no evidence of focal pulmonary consolidation. There is no evidence of failure. No pleural effusions are visualized.[ IMPRESSION: No active disease in the chest. Electronically signed by: Roni Pinto M.D. 08/22/2017 9:55 PM Dictated Date/Time: 08/22/2017 9:54 PM Laboratory Results 08/22/17 21:08 Red Blood Count 4.67, Mean Corpuscular Volume 87.8, Mean Corpuscular Hemoglobin 30.2, Mean Corpuscular Hemoglobin Concent 34.4, Mean Platelet Volume 11.2, Neutrophils (%) (Auto) 54.9, Lymphocytes (%) (Auto) 37.6, Monocytes (%) (Auto) 4.7, Eosinophils (%) (Auto) 2.5, Basophils (%) (Auto) 0.2, Neutrophils # (Auto) 4.69, Lymphocytes # (Auto) 3.21, Monocytes # (Auto) 0.40, Eosinophils # (Auto) 0.21, Basophils # (Auto) 0.02 08/22/17 21:08 Test 08/22/17 21:08 08/22/17 21:15 White Blood Count 8.54 K/uL (4.8-10.8) Red Blood Count 4.67 M/uL (4.2-5.4) Hemoglobin 14.1 g/dL (12.0-16.0) Hematocrit 41.0 % (37-47) Mean Corpuscular Volume 87.8 fL (80-100) Mean Corpuscular Hemoglobin 30.2 pg (25-34) Mean Corpuscular Hemoglobin Concent 34.4 g/dl (32-36) Platelet Count 230 K/uL (130-400) Mean Platelet Volume 11.2 fL (7.4-10.4) Neutrophils (%) (Auto) 54.9 % Lymphocytes (%) (Auto) 37.6 % Monocytes (%) (Auto) 4.7 % Eosinophils (%) (Auto) 2.5 % Basophils (%) (Auto) 0.2 % Neutrophils # (Auto) 4.69 K/uL (1.4-6.5) Lymphocytes # (Auto) 3.21 K/uL (1.2-3.4) Monocytes # (Auto) 0.40 K/uL (0.11-0.59) Eosinophils # (Auto) 0.21 K/uL (0-0.5) Basophils # (Auto) 0.02 K/uL (0-0.2) RDW Standard Deviation 42.4 fL (36.4-46.3) RDW Coefficient of Variation 13.3 % (11.5-14.5) Immature Granulocyte % (Auto) 0.1 % Immature Granulocyte # (Auto) 0.01 K/uL (0.00-0.02) Prothrombin Time 10.0 SECONDS (9.0-12.0) Prothromb Time International Ratio 1.0 (0.9-1.1) Activated Partial Thromboplast Time 26.4 SECONDS (21.0-31.0) Partial Thromboplastin Ratio 1.0 Anion Gap 4.0 mmol/L (3-11) Est Creatinine Clear Calc Drug Dose 71.6 ml/min Estimated GFR () 96.5 Estimated GFR (Non- 83.2 BUN/Creatinine Ratio 17.9 (10-20) Calcium Level 9.2 mg/dl (8.5-10.1) Bedside D-Dimer 289 ng/mlFEU (0-450) Laboratory results as reviewed by me. Medications Administered Medications (Trade) Dose Ordered Sig/[place] Route Start Time Stop Time Status Last Admin Dose Admin Ketorolac Tromethamine (Toradol Inj) 10 mg NOW STAT IV 08/22/17 22:08 08/22/17 22:09 DC 08/22/17 22:17 10 MG ECG Per My Interpretation Indication: chest pain Rate (beats per minute): 90 Rhythm: normal sinus Findings: other (no ST elevations, no PVCs) ED Course 2043: The patient was evaluated in room C1B. A complete history and physical exam was performed. 2207: Toradol Inj 10 mg IV. 2238: Upon reevaluation, the patient appeared to have improvement of her symptoms. She states that her chest pain is now completely gone. I discussed tonight's findings with her. She verbalized agreement of the treatment plan. She was discharged home. Medical Decision This is a 27-year-old female with chest pain. Differential diagnosis includes pleurisy, costochondritis, pneumothorax, pulmonary embolism, pneumonia. I did perform a limited focused review of portions of the patient's old chart on the electronic medical record. The patient was seen here July 29 for chest pain and back pain. She had a workup here that included a negative d-dimer and troponin, and was discharged home. She did have a troponin of 3.4 at the time. I did evaluate the patient as noted above. The patient is presenting with left- sided chest pain. It is reproducible on examination. She has no known risk factors for pulmonary embolism or OK. IV access was established. The patient was placed on a continuous cardiac cath lab manager. Urine test was negative. I did order and personally review the patient's 12-lead EKG and chest x-ray as described above. Twelve-lead EKG and chest x-ray were unremarkable. I did order and review the patient's blood work as noted in the electronic medical record. D-dimer is negative. I did treat the patient with Toradol IV. I did reassess the patient. She stated that the chest pain went to the middle of her chest where it was the last time she was here in June but went away after she got the Toradol. I did discuss the test results with her. I did recommend she continue anti-inflammatories and to follow-up with her doctor. She was discharged in good condition. Medication Reconcilliation Current Medication List: was personally reviewed by me Blood Pressure Screening Patient's blood pressure: Elevated blood pressure Blood pressure disposition: Referred to PCP Impression Primary Impression: Left sided chest pain Scribe Attestation The scribe's documentation has been prepared under my direct and personally reviewed by me in its entirety. I confirm that the note above accurately reflects all work, treatment, procedures, and medical decision making performed by me. Departure Information Dispostion Home / Self-Care Referrals Stefani BOOKER M.D. (PCP) Janis Dale M.D. Patient Instructions ED Chest Pain Atypical [facility] Cause, My [facility] Additional Instructions You have been examined and treated today on an emergency basis only. This is not a substitute for, or an effort to provide, complete comprehensive medical care. It is impossible to recognize and treat all injuries or illnesses in a single emergency department visit. It is therefore important that you follow up closely with your physician. Call as soon as possible for an appointment. Return for worsening symptoms or if you develop fever, vomiting, trouble breathing or any other concerning symptoms.
== END 2017-08-22 22:55 | disposition home or self-care (01) ==
LOC: C.EDB 20:23 → C.EDC 22:55
DX: R07.9 Chest pain, unspecified (principal); Z82.49 Family history of ischemic heart disease and other diseases of the circulatory system; Z84.1 Family history of disorders of kidney and ureter; Z83.79 Family history of other diseases of the digestive system; Z79.899 Other long term (current) drug therapy

== ENCOUNTER → 2017-12-13 | Outpatient (CLI) | payer OTHER ==
[~2017-12-13] MED LIST changes: +FLUO10CA48 PO; +PRENTAB26 PO; +PRVHFAIN INH
== END | disposition home or self-care (01) ==
LOC: C.PAPS 18:15
PROVIDERS: ATTEND Obstetrics & Gynecology
DX: Z12.4 Encounter for screening for malignant neoplasm of cervix (principal)

== ENCOUNTER 2022-07-31 17:38 | Observation (INO) ==
--- NOTE | 2022-07-31 17:44 | ED Triage Note ---
Date of Service July 31, 2022 History of Present Illness This patient was briefly evaluated while in triage. An abbreviated physical exam was performed. This patient is a 32-year-old Female who presents to the ED for evaluation of neuro symptoms. Primarily left side face and into left hand. Symptoms started around 4pm. She may have headache and mild visual changes. Called [facility] and recommended coming in. She is 33 weeks . This did happen twice previously, at 8 weeks and 10 weeks. Physical Exam Limited Triage Exam: VITALS: Vitals are noted on the nurse's note and reviewed by myself. Vital signs stable. GENERAL: Well-developed, well-nourished, white female, who is in no acute distress and resting comfortably. Patient is cooperative with the examination. HEART: Regular rate and rhythm without murmurs gallops or rubs. LUNGS: Clear to auscultation bilaterally without wheezes, rales or rhonchi. No retractions or accessory muscle use. ABD: Consistent with . Initial orders for labs and / or imaging were placed and patient was placed in the waiting area until a bed is available. Please see further documentation for the full ED course. MDM / Impression Impression Impression: Brain TIA, Headache, Arm paresthesia, left, Hand weakness
[2022-07-31] MEDS ORDERED: SODIUM CHLORIDE 0.9% 1000ML 1,000 ML IV SCH ×2 (17:45→22:35)
[2022-07-31] MEDS ORDERED: ACETAMINOPHEN 1,000 MG/100 ML VIAL IV STA (17:45)
[2022-07-31] MEDS ORDERED: SODIUM CHLORIDE 0.9% 1000ML 1,000 ML IV ONE (18:20)
[2022-07-31 18:30] LABS: Appearance Urine Clear (Clear); Bacteria Urine Automated Negative (Negative); Basophils # (auto) 0.04 K/uL (0-0.2); Basophils % (auto) 0.3 %; Bilirubin Urine Negative (Negative); Blood Urine 2+ (Negative); Color Urine Yellow; Eosinophils # (auto) 0.14 K/uL (0-0.50); Eosinophils % (auto) 1.2 %; Glucose Urine UA Negative (Negative); Hematocrit (blood only) 38.2 % (37.0-47.0); Hemoglobin 13.2 g/dl (12.0-16.0); Immature Granulocytes # (auto) 0.13 K/uL (0.01-0.20); Immature Granulocytes % (auto) 1.1 %; Ketones Urine Negative (Negative); Leukocyte Esterase Urine Negative (Negative); Lymphocytes # (auto) 2.35 K/uL (1.2-3.4); Lymphocytes % (auto) 19.3 %; Mean Corpuscular Hemoglobin 30.9 pg (25.0-34.0); Mean Corpuscular Hgb Conc 34.6 g/dL (32.0-36.0); Mean Corpuscular Volume 89.5 fL (80.0-100.0); Mean Platelet Volume 10.7 fL (9.4-12.4); Monocytes # (auto) 0.91 K/uL (0.11-0.59); Monocytes % (auto) 7.5 %; Neutrophils # (auto) 8.59 K/uL (1.40-6.50); Neutrophils % (auto) 70.6 %; Nitrite Urine Negative (Negative); Platelet Count 163 K/uL (130-400); Protein Urine Negative (Negative); RDW Coefficient of Variation 12.9 % (11.5-14.5); RDW Standard Deviation 42.4 fL (36.4-46.3); Red Blood Count 4.27 M/uL (4.20-5.40); Specific Gravity Urine 1.003 (1.000-1.030); Urobilinogen Urine Negative (Negative); White Blood Count 12.16 K/ul (4.8-10.8)
[2022-07-31 18:47] LABS: Albumin Globulin Ratio 1.1 (0.9-2); Albumin Level 3.7 gm/dl (3.4-5.0); BUN Creatinine Ratio 21.7 (10-20); Bilirubin,Total 0.3 mg/dl (0.2-1.0); Calcium 9.2 mg/dl (8.6-10.3); Creatinine Clr Calc Pharmacy 131.4 ml/min; Est GFR (African American) 141.8 ml/min; Est GFR (Non-African American) 122.3 ml/min; Globulin 3.4 gm/dl (2.5-4.0); Magnesium 1.9 mg/dl (1.7-2.4); Potassium 3.6 mmol/L (3.5-5.1); Total Protein 7.1 gm/dl (6.0-8.3)
--- NOTE | 2022-07-31 18:47 | Emergency Department Note ---
Impression & Plan Brain TIA, Headache, Arm paresthesia, left, Hand weakness ED Provider Note NAME: EMILIANO MOSS AGE: 32 SEX: F : 1990 ARRIVES VIA: Walk-In INFORMANT: Patient ED PROVIDER(S): Juve Preciado DO CHIEF COMPLAINT: left arm weakness HPI: Patient is a 32-year-old G1, P0 at 33 weeks who presents to the ER for left hand weakness, paresthesias and left-sided facial numbness as well as blurry vision. This started around 4:00. Lasted for about 20 minutes and she came in. Does admit to a headache. She has had this 2 times previously with this . She notes several years ago she was diagnosed with a TIA. She does have a history of migraines. Denies any chest pain or shortness of breath. No nausea, vomiting, or diarrhea. No vaginal bleeding or vaginal discharge. No other exacerbating or remitting factors. She is still feeling the baby move. Again she has no abdominal pain. No contractions. PAST MEDICAL HISTORY:See Below PAST SURGICAL HISTORY:See Below FAMILY HISTORY:See Below SOCIAL HISTORY:See Below HOME MEDICATIONS:See Below ALLERGIES:See Below VITALS:See Below PHYSICAL EXAMINATION: GENERAL: Sitting up in bed, alert, well appearing, well nourished, no distress, non-toxic EYE EXAM: normal conjunctiva. PERRL and EOM's intact. OROPHARYNX: no exudate, no erythema, lips, buccal mucosa, and tongue normal and mucous membranes are moist NECK: supple, no nuchal rigidity, no adenopathy, non-tender LUNGS: Clear to auscultation. Normal chest wall mechanics HEART: no murmurs, S1 normal and S2 normal ABDOMEN: abdomen soft, non-tender, normo-active bowel sounds, no masses, no rebound or guarding. UPPER EXTREMITIES: upper extremities are grossly normal. LOWER EXTREMITIES: No pitting edema. NEURO EXAM: Normal sensorium, cranial nerves II-XII intact, normal speech, no weakness of arms, no weakness of legs. No drift. Finger to nose intact. Gross sensation intact. MEDICAL DECISION MAKING: Patient is a 32-year-old female who presents ER for above-stated complaint. IV was established blood work was obtained. External records were reviewed. Labs show mild leukocytosis of 12,000. No significant anemia. BMP with LFTs bilirubin and lipase was unremarkable. UA was clean. COVID was negative. CT of the head was performed and was negative. Chest x-ray was clean. I am concerned that this could be a TIA with the left hand weakness as well as the paresthesias and left facial paresthesias. Based on her history I do favor that this is likely a complex migraine but cannot be certain at this time. NIH is 0. Will need MRIs and MRAs and further work-up. Discussed with the hospitalist for further evaluation management and treatment. Triage Nursing notes reviewed. Limited review of prior medical records performed Vital Signs: reviewed and remarkable for HTN Differential diagnosis: Differential Diagnosis includes but is not limited to ischemic Stroke, hemorrhagic stroke, bells palsy, mass, neoplasm, migraine headache, seizure, subarachnoid hemorrhage, TIA, and transient global amnesia. ER treatment provided: See below Diagnostics interpreted by me include EKG and cardiac monitoring as listed below: -Cardiac Monitoring: An order was placed for continuous cardiac monitoring. The monitor shows a rate of 90 with sinus rhythm. -ECG: Sinus rhythm rate 82 Normal axis No PVCs QTc 413 -Laboratory studies:Interpreted by me as stated above in MDM and shown below. Imaging studies: Xrays: As interpreted by me: Portable AP upright 1 view of the chest shows no focal infiltrate CTs show: CT head was negative Consultation(s): Discussed with Dr. Vega approved for further evaluation management and treatment Procedures:none Critical Care: None Past Med/Surg History Medical History Anxiety ASCUS with positive high risk HPV History of chicken pox Migraines Follows with [facility] neuro- stable PVC (premature ventricular contraction) 2017- On Metoprolol in the past - later d/c'ed- no longer need to follow with cardio- Scoliosis curvature identified on intake exam for . No h/o surgery or rods Transient cerebral ischemia Possible TIA 2013- no cause found during work up (specifically no clotting disorder or PFO per records) - Possible complex migraine with oral contraception Surgical History S/P wisdom tooth extraction Family History Mother Diabetes Grandfather (Maternal) Hypertension Nephrolithiasis Grandmother (Maternal) Thyroid disease Breast cancer Grandmother (Paternal) Breast cancer Family/Other Myocardial infarction Other Family history non-contributory Denies family history of Ovarian cancer Prostate cancer Colorectal cancer Social History (Updated 02/01/22 @ 09:59 by Cely Chaves) Smoking Status: Never smoker Second Hand Exposure: Yes; Hx Alcohol Use: Yes (socially- no alcohol while ) Hx Substance Use: No Preferred Language: Jordanian Communication Ability: Effective marital status: Single marital status details: jayleen Moss ( [phone] Current Living Situation: Significant Other Current Living Situation Comment: lives with rick clemens current occupational status: employed 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 Safe at Home: Yes Childhood Exposure to Second-Hand Smoke: Yes caffeine: Yes Dental Care, Regularly: Yes Physical Activity Frequency: 3-4 Times per Week Seatbelt Use: always Sunscreen Use: Yes Allergies Allergies Allergy/AdvReac Type Severity Reaction Status Date / Time No Known Drug Allergies Allergy Verified 07/18/22 16:08 Home Meds Home Medications Medication Instructions Recorded Confirmed prenat.vits,emily,bpl-srbn-oomnb 1 tab PO DAILY 07/31/22 07/31/22 Results & Data (ED) Vital Signs Vital Signs - 24 hr 07/31/22 17:41 07/31/22 17:57 07/31/22 17:57 Pulse Rate 88 Pulse Rate [Apical] 82 Pulse Rhythm Regular Respiratory Rate 16 16 Respiratory Effort / Characteristics Non-Labored Spontaneous Respiratory Depth Normal Respiratory Pattern Regular Blood Pressure Blood Pressure [Left Arm] 140/92 Blood Pressure Mean Blood Pressure Mean [Left Arm] 108 Pulse Oximetry 100 100 Oxygen Delivery Method Room Air Room Air Sepsis New/Unexplained Change in Mental Status No Sepsis Action Taken by Nursing No Action Required 07/31/22 18:06 07/31/22 18:05 07/31/22 18:30 Pulse Rate 88 91 H 92 H Pulse Rate [Apical] Pulse Rhythm Respiratory Rate 14 15 Respiratory Effort / Characteristics Respiratory Depth Respiratory Pattern Blood Pressure 140/100 Blood Pressure [Left Arm] Blood Pressure Mean 113 Blood Pressure Mean [Left Arm] Pulse Oximetry 100 95 Oxygen Delivery Method Room Air Room Air Sepsis New/Unexplained Change in Mental Status Sepsis Action Taken by Nursing 07/31/22 19:00 Pulse Rate 89 Pulse Rate [Apical] Pulse Rhythm Respiratory Rate 15 Respiratory Effort / Characteristics Respiratory Depth Respiratory Pattern Blood Pressure 136/86 Blood Pressure [Left Arm] Blood Pressure Mean 102 Blood Pressure Mean [Left Arm] Pulse Oximetry 99 Oxygen Delivery Method Room Air Sepsis New/Unexplained Change in Mental Status Sepsis Action Taken by Nursing Laboratory Data 07/31/22 18:09 07/31/22 18:09 Lab Results 07/31/22 07/31/22 07/31/22 Range/Units 18:09 18:09 18:09 WBC 12.16 H (4.8-10.8) K/ul RBC 4.27 (4.20-5.40) M/uL Hgb 13.2 (12.0-16.0) g/dl Hct 38.2 (37.0-47.0) % MCV 89.5 (80.0-100.0) fL MCH 30.9 (25.0-34.0) pg MCHC 34.6 (32.0-36.0) g/dL RDW Std Deviation 42.4 (36.4-46.3) fL RDW Coeff of Erica 12.9 (11.5-14.5) % Plt Count 163 (130-400) K/uL MPV 10.7 (9.4-12.4) fL Immature Gran % (Auto) 1.1 % Neut % (Auto) 70.6 % Lymph % (Auto) 19.3 % Edwards % (Auto) 7.5 % Eos % (Auto) 1.2 % Baso % (Auto) 0.3 % Neut # (Auto) 8.59 H (1.40-6.50) K/uL Lymph # (Auto) 2.35 (1.2-3.4) K/uL Edwards # (Auto) 0.91 H (0.11-0.59) K/uL Eos # (Auto) 0.14 (0-0.50) K/uL Baso # (Auto) 0.04 (0-0.2) K/uL Immature Gran # (Auto) 0.13 (0.01-0.20) K/uL Sodium 137 (136-145) mmol/L Potassium 3.6 (3.5-5.1) mmol/L Chloride 106 (98-107) mmol/L Carbon Dioxide 24 (21-32) mmol/L Anion Gap 7 (3-11) BUN 13 (6-23) mg/dl Creatinine 0.60 (0.6-1.2) mg/dl Est Cr Clr Drug Dosing 131.4 ml/min Est GFR ( Amer) 141.8 ml/min Est GFR (Non-Af Amer) 122.3 ml/min BUN/Creatinine Ratio 21.7 H (10-20) Glucose 80 (70-99(Fasting)) mg/dl Calcium 9.2 (8.6-10.3) mg/dl Magnesium 1.9 (1.7-2.4) mg/dl Total Bilirubin 0.3 (0.2-1.0) mg/dl AST 23 (13-39) U/L ALT 25 (7-52) U/L Alkaline Phosphatase 130 H (34-104) U/L Total Protein 7.1 (6.0-8.3) gm/dl Albumin 3.7 (3.4-5.0) gm/dl Globulin 3.4 (2.5-4.0) gm/dl Albumin/Globulin Ratio 1.1 (0.9-2) Lipase 21 (11-82) U/L Urine Color Yellow Urine Appearance Clear (Clear) Urine pH 7.0 (4.5-7.5) Ur Specific [place] 1.003 (1.000-1.030) Urine Protein Negative (Negative) Urine Glucose (UA) Negative (Negative) Urine Ketones Negative (Negative) Urine Blood 2+ H (Negative) Urine Nitrite Negative (Negative) Urine Bilirubin Negative (Negative) Urine Urobilinogen Negative (Negative) Ur Leukocyte Esterase Negative (Negative) Urine WBC (Auto) 1-5 (0-5) /hpf Urine RBC (Auto) 5-10 H (0-4) /hpf U Hyaline Cast (Auto) 1-5 (0-5) /lpf U Epithel Cells (Auto) 5-10 H (0-5) /lpf Urine Bacteria (Auto) Negative (Negative) SARS-CoV-2, RNA, NAAT (NEGATIVE) 07/31/22 Range/Units 19:20 WBC (4.8-10.8) K/ul RBC (4.20-5.40) M/uL Hgb (12.0-16.0) g/dl Hct (37.0-47.0) % MCV (80.0-100.0) fL MCH (25.0-34.0) pg MCHC (32.0-36.0) g/dL RDW Std Deviation (36.4-46.3) fL RDW Coeff of Erica (11.5-14.5) % Plt Count (130-400) K/uL MPV (9.4-12.4) fL Immature Gran % (Auto) % Neut % (Auto) % Lymph % (Auto) % Edwards % (Auto) % Eos % (Auto) % Baso % (Auto) % Neut # (Auto) (1.40-6.50) K/uL Lymph # (Auto) (1.2-3.4) K/uL Edwards # (Auto) (0.11-0.59) K/uL Eos # (Auto) (0-0.50) K/uL Baso # (Auto) (0-0.2) K/uL Immature Gran # (Auto) (0.01-0.20) K/uL Sodium (136-145) mmol/L Potassium (3.5-5.1) mmol/L Chloride (98-107) mmol/L Carbon Dioxide (21-32) mmol/L Anion Gap (3-11) BUN (6-23) mg/dl Creatinine (0.6-1.2) mg/dl Est Cr Clr Drug Dosing ml/min Est GFR ( Amer) ml/min Est GFR (Non-Af Amer) ml/min BUN/Creatinine Ratio (10-20) Glucose (70-99(Fasting)) mg/dl Calcium (8.6-10.3) mg/dl Magnesium (1.7-2.4) mg/dl Total Bilirubin (0.2-1.0) mg/dl AST (13-39) U/L ALT (7-52) U/L Alkaline Phosphatase (34-104) U/L Total Protein (6.0-8.3) gm/dl Albumin (3.4-5.0) gm/dl Globulin (2.5-4.0) gm/dl Albumin/Globulin Ratio (0.9-2) Lipase (11-82) U/L Urine Color Urine Appearance (Clear) Urine pH (4.5-7.5) Ur Specific [place] (1.000-1.030) Urine Protein (Negative) Urine Glucose (UA) (Negative) Urine Ketones (Negative) Urine Blood (Negative) Urine Nitrite (Negative) Urine Bilirubin (Negative) Urine Urobilinogen (Negative) Ur Leukocyte Esterase (Negative) Urine WBC (Auto) (0-5) /hpf Urine RBC (Auto) (0-4) /hpf U Hyaline Cast (Auto) (0-5) /lpf U Epithel Cells (Auto) (0-5) /lpf Urine Bacteria (Auto) (Negative) SARS-CoV-2, RNA, NAAT NEGATIVE (NEGATIVE) Administered Medications Discontinued Medications Sodium Chloride (Nss 1000ml) 1,000 mls @ 999 mls/hr IV .Q1H1M CADE Stop: 07/31/22 18:45 Last Infusion: 07/31/22 20:13 Dose: 0 mls/hr Documented By: Admin: 07/31/22 18:16 Dose: 999 mls/hr Documented By: DARELL Acetaminophen (Ofirmev) 1,000 mg in 100 mls @ 400 mls/hr IV NOW STA Stop: 07/31/22 17:59 Last Infusion: 07/31/22 19:49 Dose: 0 mls/hr Documented By: Admin: 07/31/22 18:15 Dose: 400 mls/hr Documented By: AP Sodium Chloride (Nss 1000ml) 1,000 mls @ 999 mls/hr IV .Q1H1M ONE Stop: 07/31/22 19:20 Last Infusion: 07/31/22 21:41 Dose: 0 mls/hr Documented By: Admin: 07/31/22 20:30 Dose: 999 mls/hr Documented By: ISABELL Imaging Data Radiologist's Impression: Chest X-Ray 07/31/22 18:20 XR chest 1V portable CLINICAL HISTORY: l arm weak TECHNIQUE: Single frontal radiograph of the chest was obtained. Comparison: Comparison is made to chest radiograph 07/11/2020 FINDINGS: No lines and tubes are seen. The cardiomediastinal silhouette is normal. The lungs are clear. No evidence of pleural effusion or pneumothorax. IMPRESSION: No acute chest disease. ACT 112: Negative or not required by law. Electronically signed by: Augustus Reaves M.D. 07/31/2022 6:[address] 07/31/22 18:20 CT head/brain wo con CLINICAL HISTORY: blurry vison and l hand weak Technique: Contiguous axial CT images of the head were acquired from the base of the skull to the vertex without intravenous contrast administration. Images were viewed in brain, subdural and bone windows. Automated dose lowering techniques and/or adjustment according to patient size were utilized for this exam. Comparison: None available at the time of this dictation. Findings: The ventricles, basal cisterns, and cerebral sulci are normal. There is no acute intracranial hemorrhage or evidence of acute territorial infarction. Neither mass effect, shift of the midline structures, nor abnormal extra-axial fluid collections are shown. Imaged portions of the paranasal sinuses and mastoid air cells are clear. The orbits appear normal. There are no acute fractures of the calvaria or scalp swelling. Impression: No acute intracranial hemorrhage, no evidence of acute territorial infarction or other acute intracranial disease process. ACT 112: Negative or not required by law. Electronically signed by: Augustus Reaves M.D. 07/31/2022 7:03 PM Discharge Plan Visit Data Chief Complaint: Illness Stated Complaint: FACE NUMBNESS, LEFT ARM NUMBNESS, 33 WKS ED Provider: Juve Preciado Discharge Problem: Brain TIA, Headache, Arm paresthesia, left, Hand weakness Forms Stand Alone Forms: My [employer] Prescriptions Prescriptions: No Action Vitamin Tablet 1 tab PO DAILY Referrals Referrals: Inés Mehta DO [Primary Care Provider] -
--- NOTE | 2022-07-31 18:59 | XRay Report ---
XR chest 1V portable CLINICAL HISTORY: l arm weak TECHNIQUE: Single frontal radiograph of the chest was obtained. Comparison: Comparison is made to chest radiograph 07/11/2020 FINDINGS: No lines and tubes are seen. The cardiomediastinal silhouette is normal. The lungs are clear. No evid ence of pleural effusion or pneumothorax. IMPRESSION: No acute chest disease. ACT 112: Negative or not required by law. Electronically signed by: Augustus Reaves M.D. 07/31/2022 6:58 PM
--- NOTE | 2022-07-31 19:04 | CT Scan Report ---
CT head/brain wo con CLINICAL HISTORY: blurry vison and l hand weak Technique: Contiguous axial CT images of the head were acquired from the base of the skull to the seymour prudencio without intravenous contrast administration. Images were viewed in brain, subdural and bone windo ws. Automated dose lowering techniques and/or adjustment according to patient size were utilized for this exam. Comparison: None available at the time of this dictation. Findings: The ventricles, basal cisterns, and cerebral sulci are normal. There is no acute intracranial hemorrh age or evidence of acute territorial infarction. Neither mass effect, shift of the midline structures , nor abnormal extra-axial fluid collections are shown. Imaged portions of the paranasal sinuses and mastoid air cells are clear. The orbits appear normal. There are no acute fractures of the calvaria or scalp swelling. Impression: No acute intracranial hemorrhage, no evidence of acute territorial infarction or other acute intracra nial disease process. ACT 112: Negative or not required by law. Electronically signed by: Augustus Reaves M.D. 07/31/2022 7:03 PM
[2022-07-31] MEDS ORDERED: ACETAMINOPHEN 325 MG TAB PO PRN (22:35)
--- NOTE | 2022-08-01 01:13 | History and Physical Report ---
DATE OF ADMISSION: 07/31/2022. CHIEF COMPLAINT: complex migrainous versus vs TIA symptoms. HISTORY OF PRESENT ILLNESS: A 32-year-old female with history of allergic rhinitis, mild asthma, previous PACs, migraine variant, currently 1, para 0, 33 weeks . Comes because of some funny visions in the left eye around 4:00 p.m. and also around 5:00 p.m., she noticed numbness in the left hand and also in the chin area, and the tongue region, and also had headache at that time. The numbness lasted for about 20 minutes and all the symptoms are resolved currently, except for mild headache. CT of the head is unremarkable in the ER. She has a history of migraines in the past. She had a similar episode when she was at 8 weeks and she had MRI scan at [facility] at that time in January 2022, which was mostly no acute findings and some minimal T2 hyperintense foci within the periventricular white matter, doubtful clinical significance, but could see in the setting of migraines, Lyme disease . She had another episode at 9 weeks of . [facility] also had a followup with [facility] telemedicine on 07/21/2022 and [facility] thought it is most likely migraine with aura. They recommended continue magnesium, riboflavin, and Tylenol as needed and no further workup recommended at that time. Ad if recurrent symptoms further workup after delivery .Also today called [facility] neurology tongue and groove machine setter and was recommended no further studies. Tylenol, good hydration, and continue magnesium and riboflavin and follow with [facility] was recommended.. The patient is currently resting comfortably, hemodynamically stable, able to ambulate in the ER, and denies any blurred vision currently. No earache, no runny nose, no sore throat, no cough, no fevers, no chest pain or shortness of breath, no nausea, no abdominal pain. Normal bowel and bladder movements. No swelling in the legs. ALLERGIES: No known drug allergies. PAST MEDICAL HISTORY: As mentioned above. PAST SURGICAL HISTORY: Dental surgery. MEDICATIONS: vitamins, magnesium. FAMILY HISTORY: Significant for brother has allergies; mother has allergies, asthma, diabetes; sister has asthma. SOCIAL HISTORY: . Quit smoking in 2013. Alcohol, rarely. No drug use. REVIEW OF SYSTEMS: As per HPI. Rest of the review of systems is negative. PHYSICAL EXAMINATION: GENERAL: The patient is of moderate build, not in acute distress. VITAL SIGNS: Temperature afebrile, pulse 89, respiratory rate 15, blood pressure 136/86, and oxygen 99% on room air. HEENT: Pupils equal, round and reactive to light. Oral mucosa moist. Tongue midline. NECK: No JVD or neck masses. CARDIOVASCULAR: S1 and S2 heard. Regular rate and rhythm. No murmur, no gallop. RESPIRATORY SYSTEM: Normal AP diameter. No accessory muscle use. No wheezing or crackles. ABDOMEN: Soft, bowel sounds present, nontender, no distention. CENTRAL NERVOUS SYSTEM: Alert and oriented. Speech is clear. No facial droop. Coordination of movements normal. Ambulating okay. EXTREMITIES: No edema, no erythema. LABORATORY DATA: WBC 12.1, hemoglobin 13.2, hematocrit 38.2, platelets 163. Sodium 137, potassium 3.6, chloride 106, bicarbonate 24, BUN 13, creatinine 0.6, serum glucose 80, calcium 9.2, magnesium 1.9, total bilirubin 0.3, AST 23, ALT 25, alkaline phosphatase 130. Lipase 21. Urinalysis, +2 blood, otherwise negative. SARS-CoV-2 rapid test negative. IMAGING DATA: CT of the head without contrast, no acute findings. Chest x-ray, no acute chest disease. EKG: Normal sinus rhythm at a rate of 82, no significant change was found. ASSESSMENT AND PLAN: This is a 32-year-old female who presents with a complex migraine versus tia symptoms. 1. Complex migraine versus tia symptoms with some funny feeling right vision and numbness in the left hand and numbness in the tongue and chin that is resolved currently, currently asymptomatic. She had similar symptoms when she was at 8 weeks and at that time MRI scan was okay and she had similar symptoms at [address] of the head was okay. She also had followed with [facility] and recommended continuing magnesium and riboflavin for complex migraines. Discussed with [facility] neurology tongue and groove machine setter today and advised no further imaging studies. To continue Tylenol as needed and magnesium and riboflavin. Advised to follow with [facility]. Since she is getting admitted, we will do the stroke protocol with neuro checks. Consult neurology in the a.m. and ALLOCATION ANALYST in the a.m. IV fluids, Tylenol p.r.n. 2. : A 33-week . Will consult ALLOCATION ANALYST while the patient is in the hospital. 3. Deep venous thrombosis prophylaxis: Sequential compression devices. DISPOSITION: Observation in tele floor. Level 1 full code. Expect to discharge home and follow with family doctor. Job ID: [id number] MTDD
[2022-08-01 06:48] LABS: Basophils # (auto) 0.05 K/uL (0-0.2); Basophils % (auto) 0.5 %; Eosinophils # (auto) 0.14 K/uL (0-0.50); Eosinophils % (auto) 1.5 %; Hematocrit (blood only) 33.6 % (37.0-47.0); Hemoglobin 11.6 g/dl (12.0-16.0); Immature Granulocytes # (auto) 0.08 K/uL (0.01-0.20); Immature Granulocytes % (auto) 0.9 %; Lymphocytes # (auto) 2.17 K/uL (1.2-3.4); Lymphocytes % (auto) 23.4 %; Mean Corpuscular Hgb Conc 34.5 g/dL (32.0-36.0); Mean Corpuscular Volume 89.8 fL (80.0-100.0); Monocytes # (auto) 0.85 K/uL (0.11-0.59); Monocytes % (auto) 9.1 %; Neutrophils % (auto) 64.6 %; Platelet Count 149 K/uL (130-400); RDW Coefficient of Variation 12.9 % (11.5-14.5); RDW Standard Deviation 42.3 fL (36.4-46.3); Red Blood Count 3.74 M/uL (4.20-5.40); White Blood Count 9.29 K/ul (4.8-10.8)
[2022-08-01 07:05] LABS: Anion Gap 3 (3-11); BUN Creatinine Ratio 20.8 (10-20); Blood Urea Nitrogen 10 mg/dl (6-23); Calcium 7.8 mg/dl (8.6-10.3); Carbon Dioxide 25 mmol/L (21-32); Chloride 110 mmol/L (98-107); Chol HDL Ratio 2.5 (0-5); Cholesterol 165 mg/dl (0-200); Creatinine Clr Calc Pharmacy 164.2 ml/min; Est GFR (African American) > 150.0 ml/min; Est GFR (Non-African American) 131.6 ml/min; Glucose 71 mg/dl (70-99(Fasting)); HDL Cholesterol 67 mg/dl; LDL Cholesterol Calculated 78 mg/dl; Potassium 3.7 mmol/L (3.5-5.1); Sodium 138 mmol/L (136-145); Triglycerides 99 mg/dl (0-150); VLDL Cholesterol 20 mg/dl (0-30)
[2022-08-01 08:06] LABS: Estimated Average Glucose 100 mg/dl; Hemoglobin A1C 5.1 % (4.5-5.6)
--- NOTE | 2022-08-01 08:29 | Electrocardiogram Report ---
Test Reason : Blood Pressure : / mmHG Vent. Rate : 082 BPM Atrial Rate : 082 BPM P-R Int : 128 ms QRS Dur : 082 ms QT Int : 354 ms P-R-T Axes : 036 048 018 degrees QTc Int : 413 ms Normal sinus rhythm Normal ECG When compared with ECG of 31-JAN-2022 20:16, No significant change was found Confirmed by Jacinto Almazan ([id number]) on 08/01/2022 8:28:54 AM Referred By: REFERRED SELF Confirmed By:Jacinto Almazan
--- NOTE | 2022-08-01 08:32 | Consultation ---
Date of Consultation August 01, 2022 Assessment & Plan (1) with 33 completed weeks gestation: (2) Atypical migraine: Plan no ob issues at this time. Would recommend daily pnv. Would continue her mag, riboflavin if ok with neurology. Continue baby asa if ok by primary team and neurology. Will sign off for now unless there are any additional ob issues. Please call if there are questions or concerns. Plan per primary team and neurology. Has been seen by both [facility] and [facility] neurology. Notes are scanned in the chart. History of Present Illness Requesting Physician: Domitila Reason for Consultation: 33 weeks with atypical migraine, neuro symptoms. Attending Physician: Tabitha Walker MD History of Present Illness Patient is a 32yoowf with iup at 33 4/7 weeks. Patient presented to the Ed with neuro symptoms and GONZALEZ--left eye vision change, left hand numbness, chin numbness, tongue numbness. the chin and tongue numbness was new for the patient and that is why she presented. Patient has a hx of atypical/complex migraines and followed by neurology here and at [facility] [facility]. She had similar episodes at 8 and 10 weeks or and had a through work up and MRI. thought to be migraine with aura/complex migraine. Was also seen and evaluated by MFM at [facility]. She is on 81mg of asa daily. Patient had a through evaluation in the ED. Labs and presentation are not consistent with preeclampsia. Initially had some elevated blood pressures but these are now wnl. CT scan and cxr were wnl. she has been on magnesium , riboflavin and tylenol throughout . Patient notes the baby is very active. no contractions/lof/vb. 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 OB Labs: Blood Type A Positive 02/08/22 Antibody Screen NEGATIVE 02/08/22 Hemoglobin 12.1 g/dl (12.0-16.0) 06/21/22 Hematocrit 36.3 % (37.0-47.0) L 06/21/22 Mean Corpuscular Volume 86.8 fL (80.0-100.0) 02/08/22 Platelet Count 240 K/uL (130-400) 02/08/22 Varicella-Zoster IgG Antibody 2627.00 index 12/01/21 Rubella IgG Antibody Immune (Immune) 02/08/22 Rapid Plasma Reagin Nonreactive (Nonreactive) 02/08/22 Hepatitis B Surface Antigen. NON-REACTIVE (NON-REACTIVE) 02/08/22 Hepatitis C Antibody (EIA) NON-REACTIVE (NON-REACTIVE) 02/08/22 A HIV (1&2) Ag and Ab Confirmation NON-REACTIVE (NON-REACTIVE) 02/08/22 Glucose 1 Hour 50 gm Load 147 mg/dl (70-130) H 03/28/22 OB Optional Labs: Chlamydia trachomatis RNA Not Detected (NotDetected) 02/08/22 Neisseria gonorrhoeae RNA Not Detected (NotDetected) 02/08/22 Thyroid Stimulating Hormone (TSH) 2.864 uIu/ml (0.300-4.500) 12/01/21 Labs Reviewed: low risk panorama--akh carrier sma--akh fob negative. neg cf--akh Allergies Allergy/AdvReac Type Severity Reaction Status Date / Time No Known Drug Allergies Allergy Verified 07/18/22 16:08 Home Medications Medication Instructions Recorded Confirmed Type prenat.vits,emily,hzu-lemp-vyvsa 1 tab PO DAILY 07/31/22 07/31/22 History Patient History Medical History Anxiety ASCUS with positive high risk HPV History of chicken pox Migraines Follows with [facility] neuro- stable PVC (premature ventricular contraction) 2017- On Metoprolol in the past - later d/c'ed- no longer need to follow with cardio- Scoliosis curvature identified on intake exam for . No h/o surgery or rods Transient cerebral ischemia Possible TIA 2013- no cause found during work up (specifically no clotting disorder or PFO per records) - Possible complex migraine with oral contraception Surgical History S/P wisdom tooth extraction Family History Mother Diabetes Grandfather (Maternal) Hypertension Nephrolithiasis Grandmother (Maternal) Thyroid disease Breast cancer Grandmother (Paternal) Breast cancer Family/Other Myocardial infarction Other Family history non-contributory Denies family history of Ovarian cancer Prostate cancer Colorectal cancer Social History Smoking Status: Never smoker Second Hand Exposure: Yes; Hx Alcohol Use: No Hx Substance Use: No Preferred Language: Mohawk Communication Ability: Effective Director Of Financial Aid Required: No Beliefs That Will Affect Care: None marital status: Single marital status details: jayleen Wheat ( 33) [phone] Current Living Situation: Spouse Current Living Situation Comment: lives with rick clemens current occupational status: employed 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 Other Information That Helps Us Care for You: No Feels Safe at Home: Yes Safety Concerns: Feels Safe At This Time Childhood Exposure to Second-Hand Smoke: Yes caffeine: Yes Dental Care, Regularly: Yes Physical Activity Frequency: 3-4 Times per Week Seatbelt Use: always Sunscreen Use: Yes Physical Exam Constitutional: WD/WN, vitals as above Gastrointestinal (Abdomen): soft, nt, nd fht 130s Neurologic: patellar DTR's 2+ bilat, sensation intact Results & Data Vital Signs (Past 12 Hours) Vital Signs Temp Pulse Pulse Resp BP BP Pulse Ox 08/01/22 07:38 36.8 C 82 18 116/76 99 08/01/22 02:58 36.6 C 78 18 124/68 98 07/31/22 23:00 90 07/31/22 23:04 36.7 C 83 18 137/91 100 07/31/22 22:35 07/31/22 22:35 36.7 C 83 18 137/91 100 07/31/22 22:35 07/31/22 21:40 90 19 134/87 97 O2 Del Method O2 Del Method 08/01/22 07:38 Room Air 08/01/22 02:58 Room Air 07/31/22 23:00 07/31/22 23:04 Room Air 07/31/22 22:35 Room Air 07/31/22 22:35 Room Air 07/31/22 22:35 Room Air 07/31/22 21:40 Room Air PG Care Time/CCT Total # of Minutes Spent Total Time Spent with Patient: Total time spent is greater than 50% in coordination of care (as documented) at patient's floor/unit and/or counseling patient: Coding Level of Care Code 37888 IN/OBS CONSULT LVL 2,35M Diagnoses with 33 completed weeks gestation Z3A.33 Atypical migraine G43.009
[2022-08-01] MEDS ORDERED: MAGNESIUM OXIDE 400 MG TAB PO SCH (09:00)
[2022-08-01] MEDS ORDERED: PRENATAL VITAMIN 1 TAB PO SCH (09:00)
--- NOTE | 2022-08-01 14:23 | Hospitalist Progress Note ---
Date of Service August 01, 2022 Assessment & Plan (1) Atypical migraine: Plan: History of migraine Used to take Imitrex Has not been doing any Imitrex since Was given magnesium oxide 400 mg once a day No more attack of migraines since admission The patient wants to go home Discussed with the neurologist-no further recommendation (2) with 33 completed weeks gestation: Plan: Was seen by OB and she is doing okay (3) Headache: Plan: Headache is gone We will discharge home Admission and Anticipated Discharge Date Admission Date: July 31, 2022 Subjective 08/01/2022 The patient was seen and examined in telemetry unit She is 33 weeks and was admitted with atypical migraine Denies any more headache and or episode of migraine since admission Was seen by OB and remained stable-she wants to go home Review of Systems Review of Systems: All systems reviewed and are unremarkable except as noted below Physical Exam Physical Exam: Sitting on a chair without any acute distress Constitutional: well developed and well nourished; not ill appearing Eyes: PERRL, conjunctivae normal, anicteric sclerae ENMT: external ear and nose normal, oropharynx normal Neck: trachea midline, no thyromegaly Respiratory: no respiratory distress Auscultation: lungs clear to auscultation bilaterally Cardiovascular: Rate/Rhythm: regular rate and regular rhythm; not tachycardic Heart Sounds: normal S1 and normal S2; no murmur Extremities: no edema Gastrointestinal (Abdomen): Inspection/Auscultation: + abdomen distended Musculoskeletal: No acute arthritis involving any joint Neurologic: normal touch/pain/proprioception and moves all extremities; no focal motor deficits Results & Data Results & Data Vital Signs (Past 12 Hours) Vital Signs Temp Pulse Resp BP Pulse Ox O2 Del Method 08/01/22 11:08 36.6 C 75 18 104/65 97 Room Air 08/01/22 07:38 36.8 C 82 18 116/76 99 Room Air 08/01/22 02:58 36.6 C 78 18 124/68 98 Room Air Laboratory Results Short CBC 07/31/22 08/01/22 Range/Units 18:09 06:15 WBC 12.16 H 9.29 (4.8-10.8) K/ul Hgb 13.2 11.6 L (12.0-16.0) g/dl Hct 38.2 33.6 L (37.0-47.0) % Plt Count 163 149 (130-400) K/uL BMP 07/31/22 08/01/22 18:09 06:15 Sodium 137 138 Potassium 3.6 3.7 Chloride 106 110 H Carbon Dioxide 24 25 BUN 13 10 Creatinine 0.60 0.48 L Glucose 80 71 Calcium 9.2 7.8 L Liver Function 07/31/22 Range/Units 18:09 Total Bilirubin 0.3 (0.2-1.0) mg/dl AST 23 (13-39) U/L ALT 25 (7-52) U/L Alkaline Phosphatase 130 H (34-104) U/L Albumin 3.7 (3.4-5.0) gm/dl Urine 07/31/22 Range/Units 18:09 Urine Color Yellow Urine Appearance Clear (Clear) Urine pH 7.0 (4.5-7.5) Ur Specific [place] 1.003 (1.000-1.030) Urine Protein Negative (Negative) Urine Glucose (UA) Negative (Negative)
--- NOTE | 2022-08-01 17:25 | Discharge Summary ---
Date of Service August 01, 2022 Admission HPI Per Admitting Provider DICTATED BY:Jeffry Ramesh MD DATE OF ADMISSION: 07/31/2022. CHIEF COMPLAINT: complex migrainous versus vs TIA symptoms. HISTORY OF PRESENT ILLNESS: A 32-year-old female with history of allergic rhinitis, mild asthma, previous PACs, migraine variant, currently 1, para 0, 33 weeks . Comes because of some funny visions in the left eye around 4:00 p.m. and also around 5:00 p.m., she noticed numbness in the left hand and also in the chin area, and the tongue region, and also had headache at that time. The numbness lasted for about 20 minutes and all the symptoms are resolved currently, except for mild headache. CT of the head is unremarkable in the ER. She has a history of migraines in the past. She had a similar episode when she was at 8 weeks and she had MRI scan at [facility] at that time in January 2022, which was mostly no acute findings and some minimal T2 hyperintense foci within the periventricular white matter, doubtful clinical sig nificance, but could see in the setting of migraines, Lyme disease . She had another episode at 9 weeks of . [facility] also had a followup with [facility] telemedicine on 07/21/2022 and [facility] neurology thought it is most likely migraine with aura. They recommended continue magnesium, riboflavin, and Tylenol as needed and no further workup recommended at that time. Ad if recurrent symptoms further workup after delivery .Also today called [facility] neurology pathology transcriptionist and was recommended no further studies. Tylenol, good hydration, and continue magnesium and riboflavin and follow with [facility] neurology was recommended.. The patient is currently resting comfortably, hemodynamically stable, able to ambulate in the ER, and denies any blurred vision currently. No earache, no runny nose, no sore throat, no cough, no fevers, no chest pain or shortness of breath, no nausea, no abdominal pain. Normal bowel and bladder movements. No swelling in the legs. Admission Exam Per Admitting Provider GENERAL: The patient is of moderate build, not in acute distress. VITAL SIGNS: Temperature afebrile, pulse 89, respiratory rate 15, blood pressure 136/86, and oxygen 99% on room air. HEENT: Pupils equal, round and reactive to light. Oral mucosa moist. Tongue midline. NECK: No JVD or neck masses. CARDIOVASCULAR: S1 and S2 heard. Regular rate and rhythm. No murmur, no gallop. RESPIRATORY SYSTEM: Normal AP diameter. No accessory muscle use. No wheezing or crackles. ABDOMEN: Soft, bowel sounds present, nontender, no distention. CENTRAL NERVOUS SYSTEM: Alert and oriented. Speech is clear. No facial droop. Coordination of movements normal. Ambulating okay. EXTREMITIES: No edema, no erythema. Principal Diagnosis Atypical migraine-resolved, 33 weeks Discharge Exam Sitting on a chair without any acute distress Constitutional well developed and well nourished; not ill appearing Eyes PERRL, conjunctivae normal, anicteric sclerae ENMT external ear and nose normal, oropharynx normal Neck trachea midline, no thyromegaly Respiratory no respiratory distress Auscultation: lungs clear to auscultation bilaterally Cardiovascular Rate/Rhythm: regular rate and regular rhythm; not tachycardic Heart Sounds: normal S1 and normal S2; no murmur Extremities: no edema Gastrointestinal (Abdomen) Inspection/Auscultation: + abdomen distended Neurologic normal touch/pain/proprioception and moves all extremities; no focal motor deficits Discharge Data Allergies Allergy/AdvReac Type Severity Reaction Status Date / Time No Known Drug Allergies Allergy Verified 07/18/22 16:08 Consultations 07/31/22 20:01 ED Decision to Admit Stat 08/01/22 08:00 Consult Obstetrics Routine Ordered Studies 07/31/22 18:20 CT head/brain wo con Stat Hospital Course (1) Atypical migraine: History of migraine Used to take Imitrex Has not been doing any Imitrex since Was given magnesium oxide 400 mg once a day No more attack of migraines since admission The patient wants to go home Discussed with the neurologist-no further recommendation (2) with 33 completed weeks gestation: Was seen by OB and she is doing okay (3) Headache: Headache is gone We will discharge home Total Time Total Time Spent Total Time Spent (In Minutes): 35 minutes Discharge Plan Discharge Items Patient Disposition: Home - Self-Care Reason For Visit: ILLNESS Discharge Diagnosis: Atypical migraine-resolved, 33 weeks Activity: As commented below Activity Comment: As per your CABLE STRETCHER AND TESTER Non-emergency contact: Primary Care Provider Call non-emergency contact if: you have any medication questions and your symptoms worsen Follow-up/Referrals: Inés Mehta, [Primary Care Provider] - (Please keep regular appointment with your PCP as well) Diet: Regular Addtl Attending Provider Instructions: Please take precautions to avoid fall Take magnesium oxide as advised Keep appointments with your TIP FINISHER Pending Studies at Discharge: No Stand-Alone Forms: My [facility], Smoking Cessation Medications and DC Order Prescriptions: New magnesium oxide 400 mg (241.3 mg magnesium) Tablet 400 mg PO QAM 30 Days Qty: 30 0RF Continued prenat.vits,emily,gyf-lslv-fdnpb Tablet 1 tab PO DAILY Discharge Orders: Discharge Order (Routine); Ordered 08/01/22 Ordered By: Tabitha Walker Admission Data Admit Date/Time: 07/31/22 21:32 Attending Provider: Tabitha Walker Admit Provider: Jeffry Ramesh Primary Care Provider: Inés Mehta Other Providers: Jeffry Ramehs ; Jackie Cleveland ; Arpita Zacarias ; Felipa Interiano ; Massiel James ; Tayla Yeung ; Griffin Mae ; Sabiha Shaikh ; Manuel Foy ; Effie Hayes ; Elif Agrawal ; Rodriguez Maher Other Interventions: Discharge Summary Assessment (RN) Last Done: 08/01/22 14:38
== END 2022-08-01 15:24 | disposition home or self-care (01) ==
LOC: 2S 17:38 → ED 17:38 → 2S 21:58

== ENCOUNTER 2022-09-22 07:43 | Inpatient (IN) ==
[2022-09-22] MEDS ORDERED: LIDOCAINE 1% LOCAL 20 ML VIAL INFIL PRN (08:19)
[2022-09-22] MEDS ORDERED: OXYTOCIN 30 UNITS/500 ML BAG IV PRN ×2 (08:19→13:55)
--- NOTE | 2022-09-22 08:19 | History & Physical Report ---
Date of Service September 22, 2022 Assessment & Plan (1) Encounter for induction of labor: Plan: Patient is a 32 yo at 41 0/7 WGA presenting to labor and delivery for induction d/t post dates. Blood type: A+, GBS neg, rubella immune Membranes were swept yesterday in office Plan to start w/ persaud balloon placement; pt does not wish to start oxytocin at this time May start oxytocin and rupture membranes if necessary later depending on labor progress Proceed with labor and vaginal delivery Admission and Anticipated Discharge Date Admission Date: September 22, 2022 History of Present Illness Chief Complaint: IOL Primary Care Provider: Inés Mehta DO Patient is a 32 yo female currently at 41 0/7 WGA with an NGHIA 09/15/2022 as determined by LMP who is here for induction of labor d/t post dates. Pt has a hx of TIA/complex migraines. M recommended aspirin 81 mg daily during . Endorses mild contractions that she describes as "stomach tightness"; movement present; denies fluid loss, but does endorse increased garcia/yellow discharge this AM; denies bloody show External FHT and external uterine monitors used; category 1 tracing; normal FHT variability Had regular appointments with OB. Labs: Blood type: A+ Antibody screen: neg Hgb: 12.8 (today) Hct: 37.3 (today) WBC: 9.43 (today) Plt: 151 (today) Rubella: immune VDRL/RPR: neg Gonorrhea: neg Chlamydia: neg HIV: neg HbSAg: neg GBS: neg Other screens: cff-DNA: low risk CF: neg SMA: carrier; FOB neg Allergies Allergy/AdvReac Type Severity Reaction Status Date / Time No Known Drug Allergies Allergy Verified 09/21/22 11:52 Home Medications Medication Instructions Recorded Confirmed Type prenat.vits,emily,src-pvkv-xuzzn 1 tab PO DAILY 07/31/22 09/21/22 History riboflavin (vitamin B2) PO 08/16/22 09/21/22 History Patient History Medical History Anxiety ASCUS with positive high risk HPV History of chicken pox Migraines Follows with [facility] neuro- stable PVC (premature ventricular contraction) 2017- On Metoprolol in the past - later d/c'ed- no longer need to follow with cardio- Scoliosis curvature identified on intake exam for . No h/o surgery or rods Transient cerebral ischemia Possible TIA 2013- no cause found during work up (specifically no clotting disorder or PFO per records) - Possible complex migraine with oral contraception Surgical History S/P wisdom tooth extraction Family History Mother Diabetes Grandfather (Maternal) Hypertension Nephrolithiasis Grandmother (Maternal) Thyroid disease Breast cancer Grandmother (Paternal) Breast cancer Family/Other Myocardial infarction Other Family history non-contributory Denies family history of Ovarian cancer Prostate cancer Colorectal cancer Social History Smoking Status: Never smoker Second Hand Exposure: No; Do You Dip or Chew Tobacco: No; Tobacco Cessation Education Requested by Patient: No Hx Alcohol Use: No Hx Substance Use: No Preferred Language: Mongolian Communication Ability: Effective Electrolysis Investigator Required: No Beliefs That Will Affect Care: None marital status: marital status details: jayleen Wheat ( 33) [phone] Current Living Situation: Spouse Current Living Situation Comment: [place]- current occupational status: employed 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 Denies SOB, difficulty breathing, chest pain, palpitations, and chest pressure. Denies breast pain. Denies dysuria. Denies headache or changes in vision. Physical Exam Physical Exam: General: Alert and oriented. No acute distress CV: Regular rate and rhythm. No murmurs. Respiratory: CTA bilaterally. No rhonchi, wheezes, or crackles. No increased work of breathing. Abdomen: Gravid; Soft, nontender upon palpation Pelvic: Dilated 2 cm; Effacement 80; Station -[address] Yeung Lower extremities: No LE edema. No deep calf pain. Supervising Physician Co-Signing Physician Notes Resident Physician Supervision Note: I interviewed and examined the patient. Discussed with Dr. kauffman and agree with findings and plan as documented in the note. Any exceptions or clarifications are listed here: Patient barely changed from yesterday. Counseled on need for IV, which she ultimately accepts. Patient requests to begin / next step in IOL with PERSAUD ONLY, no pitocin or other measures at this time. Once IV is secured, will return to place persaud. She continues to plan for non-medicated / no-epidural. Documented By: Tayla Yeung MD, FACOG Resident Activity Tracking Resident Involvement: Resident Care Provided Care Provided: OB Delivery
[2022-09-22 08:57] LABS: Hematocrit (blood only) 37.3 % (37.0-47.0); Hemoglobin 12.8 g/dl (12.0-16.0); Mean Corpuscular Hemoglobin 31.1 pg (25.0-34.0); Mean Corpuscular Hgb Conc 34.3 g/dL (32.0-36.0); Mean Corpuscular Volume 90.5 fL (80.0-100.0); Mean Platelet Volume 11.5 fL (9.4-12.4); Platelet Count 151 K/uL (130-400); RDW Coefficient of Variation 13.1 % (11.5-14.5); RDW Standard Deviation 42.9 fL (36.4-46.3); Red Blood Count 4.12 M/uL (4.20-5.40); White Blood Count 9.43 K/ul (4.8-10.8)
[2022-09-22] MEDS ORDERED: ACETAMINOPHEN 325 MG TAB PO PRN (12:24)
--- NOTE | 2022-09-22 13:41 | Labor Progress Brief Note ---
Date of Service September 22, 2022 Subjective [place] urge to urinate, went to bathroom, sneed fell out. Assessment & Plan (1) Encounter for induction of labor: Plan: 41 week with h/o TIA vs complex migraine, IOL for postdates. Patient s/p sneed balloon with appropriate response. Discussed next step(s) typically pitocin, AROM, and offered patient her choice of either or both of these. She prefers to decline *both* of these and await onset of labor. Explained why this is not a good choice as there is not a high likelihood that labor will progress without further efforts to induce. Recommended that pitocin be started, discussed her concerns about dosing and assured her it can be titrated. She would like to call and discuss with hope Rush before agreeing to any further care measures. Admission and Anticipated Discharge Date Admission Date: September 22, 2022 Physical Exam Genitourinary: /-2 Vertex presentation but not as well applied right now as sneed just fell out No ROM, minimal VB FHT Cat 1 toco Q5-6 irreg Results & Data Vital Signs (Past 12 Hours) Vital Signs Temp Pulse Resp BP 09/22/22 12:30 98.4 F 09/22/22 12:49 62 109/58 L 09/22/22 12:46 74 83/57 L 09/22/22 11:00 97.9 F 68 16 139/78 09/22/22 08:28 97.9 F 77 18 133/92 09/22/22 08:24 97.9 F 18 133/92 Coding Level of Care Code None Diagnoses Encounter for induction of labor Z34.90
[2022-09-22] MEDS: LACTATED RINGER'S 1,000 ML IV PRN ×2 (13:50→21:03)
--- NOTE | 2022-09-22 17:56 | Labor Progress Brief Note ---
Date of Service September 22, 2022 Subjective Breathing through contractions, director news and FOB at bedside. Assessment & Plan Admission and Anticipated Discharge Date Admission Date: September 22, 2022 Physical Exam Genitourinary: /-1 SROM occurred during exam as bulging bag had to be moved out of the way to examine cervix, and did not withstand manipulation. Clear, copious fluid. Head well applied. FHT Cat 1 until ROM, a few variables with the next contractions after rom. Notably, no cord prolapse. [place] Q2-3m. Pit @ 9 Results & Data Vital Signs (Past 12 Hours) Vital Signs Temp Pulse Resp BP 09/22/22 17:51 70 142/85 H 09/22/22 17:35 98.6 F 09/22/22 17:43 77 145/87 H 09/22/22 17:37 73 140/88 09/22/22 17:23 68 125/79 09/22/22 17:07 75 133/85 09/22/22 16:51 88 130/81 09/22/22 16:37 79 127/76 09/22/22 16:23 89 129/84 09/22/22 16:07 78 131/75 09/22/22 15:52 78 144/81 H 09/22/22 15:36 80 155/84 H 09/22/22 15:30 16 09/22/22 15:30 97.9 F 16 09/22/22 15:23 81 146/79 H 09/22/22 15:07 76 137/92 09/22/22 14:53 81 122/83 09/22/22 14:36 84 128/89 09/22/22 14:06 77 140/81 09/22/22 12:30 98.4 F 09/22/22 12:49 62 109/58 L 09/22/22 12:46 74 83/57 L 09/22/22 11:00 97.9 F 68 16 139/78 09/22/22 08:28 97.9 F 77 18 133/92 09/22/22 08:24 97.9 F 18 133/92 Coding Level of Care Code None Diagnoses
--- NOTE | 2022-09-22 21:52 | Labor Progress Brief Note ---
Date of Service September 22, 2022 Subjective Breathing through contractions with positioning, help from uranium processing supervisor / FOB / RN, becoming somewhat discouraged. Assessment & Plan (1) Encounter for induction of labor: Plan: Patient has not made progress beyond 5cm despite AROM and pitocin. Struggling but wants to continue NCB at this time. Discussing with hope, DEVENDRA, RN and MD what her options are and the recommendations for care. Discussed pitocin increases still recommended Q20min, patient declined increase when last due because of her pain level. Advised by RN of the need to continue IOL / make progress towards delivery both for safety and to get to a point when pain will end. Does not yet want to agree to epidural but feels it is likely she will decide she wants one before she can get to 10cm. Will continue to work with patient and induce/augment as able, provide pain relief measures as accepted by patient. Admission and Anticipated Discharge Date Admission Date: September 22, 2022 Physical Exam Genitourinary: /-2 LOF clear continues FHT Cat 1 [place] with couplets, triplets Pit @ 15 Patient declined to allow pitocin increases beyond this level when due. Results & Data Vital Signs (Past 12 Hours) Vital Signs Temp Pulse Resp BP 09/22/22 21:34 91 H 18 134/88 09/22/22 21:00 18 09/22/22 21:00 98.1 F 18 09/22/22 20:30 101 H 18 144/84 H 09/22/22 19:38 90 132/78 09/22/22 19:26 91 H 18 138/94 09/22/22 19:06 85 138/81 09/22/22 18:52 76 18 139/85 09/22/22 18:38 80 136/76 09/22/22 18:23 82 133/91 09/22/22 18:08 76 132/89 09/22/22 17:51 70 142/85 H 09/22/22 17:35 98.6 F 09/22/22 17:43 77 145/87 H 09/22/22 17:37 73 140/88 09/22/22 17:23 68 125/79 09/22/22 17:07 75 133/85 09/22/22 16:51 88 130/81 09/22/22 16:37 79 127/76 09/22/22 16:23 89 129/84 09/22/22 16:07 78 131/75 09/22/22 15:52 78 144/81 H 09/22/22 15:36 80 155/84 H 09/22/22 15:30 16 09/22/22 15:30 97.9 F 16 09/22/22 15:23 81 146/79 H 09/22/22 15:07 76 137/92 09/22/22 14:53 81 122/83 09/22/22 14:36 84 128/89 09/22/22 14:06 77 140/81 09/22/22 12:30 98.4 F 09/22/22 12:49 62 109/58 L 09/22/22 12:46 74 83/57 L 09/22/22 11:00 97.9 F 68 16 139/78 Coding Level of Care Code None Diagnoses Encounter for induction of labor Z34.90
[2022-09-23] MEDS ORDERED: LIDOCAINE 2%/EPINEPHRINE 1:200,000 20 ML PF ONE (00:11)
[2022-09-23] MEDS ORDERED: BUPIVACAINE 0.25% PF 30 ML VIAL ONE (00:11)
[2022-09-23] MEDS ORDERED: SODIUM CHLORIDE 0.9% PF INJ 10 ML VIAL ONE (00:11)
[2022-09-23] MEDS ORDERED: fentaNYL citrate PF 100 MCG/2 ML VIAL ONE (00:11)
[2022-09-23] MEDS ORDERED: ePHEDrine sulfate 50 MG/ML AMP ONE (00:11)
[2022-09-23] MEDS ORDERED: fentaNYL 2MCG/ML ROPIVACAINE 1.25MG/ML 100 ML BAG EPI ONE (00:12)
[2022-09-23] MEDS: LACTATED RINGER'S 1,000 ML IV PRN ×4 (01:05→12:49)
[2022-09-23] MEDS ORDERED: fentaNYL 2MCG/ML ROPIVACAINE 1.25MG/ML 100 ML BAG EPI PRN (01:06)
[2022-09-23] MEDS ORDERED: LIDOCAINE 2%/EPINEPHRINE 1:200,000 20 ML PF EPI STA (01:06)
[2022-09-23] MEDS ORDERED: fentaNYL citrate PF 100 MCG/2 ML VIAL EPI STA (01:06)
[2022-09-23] MEDS ORDERED: SODIUM CHLORIDE 0.9% PF INJ 10 ML VIAL EPI STA (01:06)
[2022-09-23] MEDS ORDERED: NALBUPHINE HCL INJ 10 MG/ML AMP IV PRN ×2 (01:06→16:59)
[2022-09-23] MEDS ORDERED: NALOXONE HCL 0.4 MG/1 ML VIAL/CARP IV PRN ×2 (01:06→16:59)
[2022-09-23] MEDS ORDERED: ROPIVACAINE 0.5% PF 5 MG/ML 20 ML VIAL EPI PRN (01:06)
[2022-09-23] MEDS ORDERED: SODIUM CHLORIDE 0.9% PF INJ 10 ML VIAL EPI PRN (01:06)
[2022-09-23] MEDS ORDERED: BUPIVACAINE 0.25% PF 30 ML VIAL EPI STA (01:06)
[2022-09-23] MEDS ORDERED: diphenhydrAMINE 50 MG/ML VIAL IV PRN ×2 (01:06→16:59)
[2022-09-23] MEDS ORDERED: BUPIVACAINE 0.25% PF 30 ML VIAL EPI PRN (01:06)
[2022-09-23] MEDS ORDERED: ePHEDrine sulfate 50 MG/ML AMP IV PRN ×2 (01:06→16:59)
[2022-09-23] MEDS ORDERED: fentaNYL citrate PF 100 MCG/2 ML VIAL EPI PRN (01:06)
[2022-09-23] MEDS ORDERED: LIDOCAINE 2% MPF LOCAL 5 ML VIAL EPI PRN (01:06)
[2022-09-23] MEDS ORDERED: NALOXONE HCL 1 MG in SODIUM CHLORIDE 0.9% 1000ML 1,000 ML IV PRN ×2 (01:06→16:59)
--- NOTE | 2022-09-23 01:09 | Anesthesiology Consultation ---
Date of Service September 23, 2022 Assessment & Plan Chart Review Chart Review: Patient NOT seen in Pre Admission Testing and Acceptable Risk for Labor Epidural Consults Requested none ASA ASA2 Proposed Anesthesia Anesthesia Type: Labor Epidural Risk / Benefits Reviewed With: PT / POA / Parent / Guardian, Accepts Plan and Informed Consent Obtained History Height/Weight Height: 5 ft 2 in Weight: 78.471 kg Allergies Allergy/AdvReac Type Severity Reaction Status Date / Time No Known Drug Allergies Allergy Verified 09/21/22 11:52 Medications Home Medications Medication Instructions Recorded Confirmed Last Taken prenat.vits,emily,bxg-dcyl-fcoky 1 tab PO DAILY 07/31/22 09/22/22 09/22/22 Active Medications Generic Name Dose Route Start Last Admin Trade Name Freq PRN Reason Stop Dose Admin Lactated Ringer's 1,000 mls @ 125 mls/hr 09/22/22 08:19 09/23/22 01:05 Lr IV 09/24/22 08:18 999 mls/hr .Q8H PRN Administration L&D Protocol Protocol Oxytocin 30 units in 500 mls @ 17 mls/hr 09/22/22 13:55 09/22/22 21:50 Pitocin IV 09/24/22 13:54 1.02 units/hr .Q24H PRN 17 mls/hr Labor Induction/Augmentation Titration Protocol 1.02 UNITS/HR Past Medical History Medical History (Updated 09/22/22 @ 10:00 by Katherine Coulter, BETTY) Anxiety ASCUS with positive high risk HPV Asthma History of chicken pox Migraines Follows with [facility]- stable PVC (premature ventricular contraction) 2017- On Metoprolol in the past - later d/c'ed- no longer need to follow with cardio- Scoliosis curvature identified on intake exam for . No h/o surgery or rods Transient cerebral ischemia Possible TIA 2013- no cause found during work up (specifically no clotting disorder or PFO per records) - Possible complex migraine with oral contraception Exercise / Class Metabolic Activity II 4-5 Yardwork/Stairs/Walk up hill Past Family History Family History Mother Diabetes Grandfather (Maternal) Hypertension Nephrolithiasis Grandmother (Maternal) Thyroid disease Breast cancer Grandmother (Paternal) Breast cancer Family/Other Myocardial infarction Other Family history non-contributory Denies family history of Ovarian cancer Prostate cancer Colorectal cancer Past Surgical History Surgical History S/P wisdom tooth extraction Past Anesthesia History No Hx of Anesthesia Complications and No Family Hx of Anesthesia Complications History of PONV No Hx of PONV and No Hx of Motion Sickness Social History Smoking Status: Never smoker Do You Dip or Chew Tobacco: No Hx Alcohol Use: No Hx Substance Use: No Physical Exam Vital Signs Last Vital Signs Temp 36.6 C 09/22/22 22:56 Pulse 94 H 09/23/22 01:07 Resp 18 09/23/22 00:02 BP 107/76 09/23/22 01:07 Pulse Ox 97 09/23/22 01:05 ENMT Mouth: no dentition abnormality Thyromental Distance: > or= 3.5 Finger Breadths Mallampati Class: II Neck normal visual inspection Respiratory normal respiratory effort Auscultation: lungs clear to auscultation bilaterally Cardiovascular Rate/Rhythm: regular rate and regular rhythm Psychiatric Orientation: alert Testing Laboratory Results 09/22/22 08:35
--- NOTE | 2022-09-23 05:08 | Communication Note ---
Date of Service: September 23, 2022 Patient care discussed with Jaquan Oconnor. Interim events include patient receiving epidural and now able to rest, which I would like to give her time to do uninterrupted so she can build some energy for 2nd stage. Per RN, cervix did reach 9cm dilation and 0 station. FHT Cat 1 and toco irregular but Q2 most of the time with occasional spacing. Plan to continue current mgmt.
[2022-09-23] MEDS ORDERED: ceFAZolin 2000MG 2,000 MG/15 ML SYR IV SCH (06:00)
[2022-09-23] MEDS: ONDANSETRON INJ 2 MG/ML 2 ML VIAL IV PRN ×2 (06:38→20:54)
--- NOTE | 2022-09-23 10:11 | Labor Progress Brief Note ---
Date of Service September 23, 2022 Subjective Comfortable with epidural. FHT Cat 1, toco Q 2-3 SVE 10/100/+1 Pt agreeable to start pushing. Assessment & Plan Admission and Anticipated Discharge Date Admission Date: September 22, 2022 Results & Data Vital Signs (Past 12 Hours) Vital Signs Temp Pulse Resp BP Pulse Ox 09/23/22 08:00 18 09/23/22 10:08 86 194/84 H 09/23/22 10:05 82 100 09/23/22 10:00 75 99 09/23/22 09:55 76 99 09/23/22 09:52 37.0 C 09/23/22 09:51 71 115/65 09/23/22 09:50 80 100 09/23/22 09:45 90 100 09/23/22 09:40 82 99 09/23/22 09:35 93 H 99 09/23/22 09:30 84 18 100 09/23/22 09:25 82 99 09/23/22 09:20 71 98 09/23/22 09:21 82 102/63 09/23/22 09:15 73 99 09/23/22 09:10 68 99 09/23/22 09:06 70 102/58 L 09/23/22 09:05 75 100 09/23/22 09:00 36.7 C 65 18 98 09/23/22 08:55 66 99 09/23/22 08:52 67 99/55 L 09/23/22 08:50 70 99 09/23/22 08:45 70 98 09/23/22 08:40 75 99 09/23/22 08:36 92 H 105/59 L 09/23/22 08:35 85 98 09/23/22 08:30 63 16 98 09/23/22 08:25 69 98 09/23/22 08:20 67 98 09/23/22 08:21 67 99/58 L 09/23/22 08:15 70 98 09/23/22 08:10 80 99 09/23/22 08:06 72 101/58 L 09/23/22 08:05 72 98 09/23/22 08:00 78 18 99 09/23/22 07:55 74 98 09/23/22 07:50 84 98 09/23/22 07:51 78 102/61 09/23/22 07:45 71 99 09/23/22 07:44 85 93 09/23/22 07:40 80 99 05 07:37 74 102/62 09/23/22 07:35 82 99 09/23/22 07:30 70 16 100 09/23/22 07:25 68 99 09/23/22 07:22 71 98/67 L 09/23/22 07:20 81 98 09/23/22 07:15 83 98 09/23/22 07:10 77 99 09/23/22 07:05 70 99 09/23/22 07:01 36.9 C 09/23/22 07:00 74 99 09/23/22 06:55 81 99 09/23/22 06:53 76 121/75 09/23/22 06:50 82 99 09/23/22 06:45 83 99 09/23/22 06:40 77 100 09/23/22 06:35 82 100 09/23/22 06:36 81 119/69 09/23/22 06:30 79 100 09/23/22 06:25 76 99 09/23/22 06:22 74 130/72 09/23/22 06:20 78 99 09/23/22 06:15 86 99 09/23/22 06:10 81 98 09/23/22 06:08 83 166/69 H 09/23/22 06:05 77 98 09/23/22 06:00 98 H 99 09/23/22 05:55 82 99 09/23/22 05:51 80 113/66 09/23/22 05:50 87 99 09/23/22 05:45 84 98 09/23/22 05:40 83 98 09/23/22 05:37 76 118/68 09/23/22 05:35 90 98 09/23/22 05:30 91 H 99 09/23/22 05:25 89 98 09/23/22 05:20 95 H 98 09/23/22 05:15 86 99 09/23/22 05:10 75 98 09/23/22 05:08 74 119/69 09/23/22 05:05 77 98 09/23/22 05:00 78 97 09/23/22 04:55 76 98 09/23/22 04:51 74 129/65 05 04:50 80 97 05/26/23 04:45 76 99 09/23/22 04:40 83 99 09/23/22 04:35 84 98 09/23/22 04:36 36.7 C 72 127/74 09/23/22 04:33 99 H 91 09/23/22 04:30 96 H 99 09/23/22 04:25 81 99 09/23/22 04:22 75 120/73 09/23/22 04:20 87 99 09/23/22 04:15 88 98 09/23/22 04:10 95 H 99 09/23/22 04:06 78 144/65 H 09/23/22 04:05 94 H 98 09/23/22 04:00 79 18 97 09/23/22 03:55 85 98 09/23/22 03:52 75 113/68 09/23/22 03:50 75 97 09/23/22 03:45 72 96 09/23/22 03:40 92 H 96 09/23/22 03:35 78 96 09/23/22 03:36 77 114/59 L 09/23/22 03:30 83 18 96 09/23/22 03:25 86 98 09/23/22 03:22 76 113/62 09/23/22 03:20 84 99 09/23/22 03:15 90 99 09/23/22 03:10 92 H 97 09/23/22 03:07 78 117/58 L 09/23/22 03:05 75 98 09/23/22 03:00 76 97 09/23/22 02:55 36.6 C 76 98 09/23/22 02:52 75 100/64 09/23/22 02:50 81 98 09/23/22 02:45 75 99 09/23/22 02:40 85 97 09/23/22 02:36 90 122/84 09/23/22 02:35 89 97 09/23/22 02:30 101 H 97 09/23/22 02:25 86 97 09/23/22 02:22 77 122/77 09/23/22 02:20 83 97 09/23/22 02:15 96 H 97 09/23/22 02:10 84 97 09/23/22 02:06 94 H 122/80 09/23/22 02:05 90 98 09/23/22 02:00 86 97 09/23/22 01:55 79 98 09/23/22 01:50 79 96 09/23/22 01:51 93 H 122/69 09/23/22 01:45 82 97 09/23/22 01:40 91 H 96 09/23/22 01:35 94 H 117/68 97 09/23/22 01:30 92 H 97 09/23/22 01:29 93 H 120/70 09/23/22 01:25 83 97 09/23/22 01:24 89 113/71 09/23/22 01:20 90 97 09/23/22 01:17 95 H 116/78 09/23/22 01:15 96 09/23/22 01:15 100 H 09/23/22 01:15 74 110/67 09/23/22 01:12 102 H 120/58 L 09/23/22 01:10 98 H 97 09/23/22 01:09 103 H 106/65 09/23/22 01:07 94 H 107/76 09/23/22 01:05 97 09/23/22 01:05 96 H 09/23/22 01:05 98 H 101/67 09/23/22 01:03 99 H 121/59 L 09/23/22 01:01 36.6 C 142/70 H 09/23/22 01:00 88 96 09/23/22 00:58 86 159/89 H 09/23/22 00:55 97 H 96 09/23/22 00:50 98 H 96 09/23/22 00:45 126 H 98 09/23/22 00:02 98 H 18 146/94 H 09/22/22 22:56 36.6 C 113 H 18 158/82 H Coding Level of Care Code None Diagnoses
--- NOTE | 2022-09-23 14:49 | History & Physical Bridge Note ---
Date of Service September 23, 2022 History & Physical Bridge Note I have examined the patient, reviewed the History & Physical and in the interval since the performance of the History & Physical I have noted the following changes of clinical significance: Patient has been pushing at this point for 4 hours. Baby is still at 1+ station, no progress. She is agreeable to delivery by section. We reviewed informed consent. Questions answered. Will proceed to OR.
[2022-09-23] MEDS ORDERED: CITRIC ACID/SODIUM CITRATE 15 ML UDC ONE (15:07)
[2022-09-23] MEDS ORDERED: ceFAZolin 330 MG/ML 1 GM VIAL ONE (15:37)
[2022-09-23] MEDS ORDERED: OXYTOCIN 10 UNITS/ML VIAL ONE (15:37)
[2022-09-23] MEDS ORDERED: PHENYLEPHRINE 100MCG/ML 5ML SYR ONE (15:39)
[2022-09-23] MEDS ORDERED: MoRPHine SULFATE PF 1 MG/ML 10 ML AMP/VIAL ONE (16:04)
--- NOTE | 2022-09-23 16:23 | Operative Report ---
PG Post Operative Report Pre & Post Diagnosis Operation Date: 09/23/22 15:00 Pre-Op Diagnosis: 1. Arrest of Descent Post-Op Diagnosis: Same I identified the patient and participated in the time-out.: Yes Procedure Operation Date: 09/23/22 15:00 Actual Procedures Primary Lower Uterine Transverse Section for the of a live boy infant at 1541 - Sabiha Shaikh DO Surgeon Sabiha Shaikh DO Sand Mill Operator Carol James MD Estimated Blood Loss 600 Findings Consistent with Post-Op Diagnosis Normal appearing uterus, fallopian tubes, ovaries. APGARS 8/9. Weight pending, please see nursing report. Specimens none, patient requested placenta to take home - this was given to hope, and taken out of the hospital. Drains sneed, clear yellow Anesthesia Type Labor Epidural Complications none Disposition Accompanied Patient To Recovery: No Disposition: L&D Indications 32yo @ 41 05/07, IOL for postdates. Progressed to complete dilation, 1+ station. Pushed for 4+ hours without further descent of head. Proceeded to section d/t arrest of descent. Description of Procedure The patient was seen in her labor and delivery room, risks benefits and alternatives to surgery were reviewed. Informed consent obtained. Questions were answered. She was taken to the operating room, additional epidural anesthesia was administered. She was then prepared and draped in the usual sterile fashion in the supine position with a leftward tilt. Timeout was confirmed. A Pfannenstiel skin incision was made with a scalpel, and carried through to the underlying layer of fascia. Fascia was nicked at midline, and this incision was extended bilaterally. The superior aspect of the fascial incision was grasped with Nellie clamps x2, elevated off the underlying rectus abdominis muscles, and dissected sharply and bluntly. In similar fashion, the inferior aspect of the fascial incision was dissected. The rectus abdominis muscles were , and the peritoneum was entered bluntly digitally. This was extended bilaterally. The bladder flap was taken down carefully using Metzenbaum scissors. Using a new scalpel, a low transverse uterine incision was created. Meconium stained amniotic fluid noted. The was delivered from a cephalic presentation. The head delivered, followed by shoulders and body. Spontaneous cry on the field. The cord was doubly clamped and cut, and the infant was handed off to the waiting photo optics technician. A segment was retained for cord gases - but this was placed into the placenta bucket and was removed from the OR by the clinical marketing manager and therefore could not be sent. Cord blood was obtained. The placenta was delivered spontaneously intact. The uterus was exteriorized, and cleared of all clots and debris. A left cervical extension was noted, repaired with running locked 0 vicryl. The hysterotomy incision was reapproximated using 0 Vicryl in a running locked stitch. A second layer of the same suture was used to imbricate the incision. Right apex with extension into uterine vasculature, [id number] suture was inadequate for hemostasis, therefore O'Corbett stitch was performed on this side to obtain excellent hemostasis. Posterior uterus was evaluated and normal, as well as posterior aspect of O'Corbett. The uterus was returned to the abdomen, and gutters were cleared of clots and debris. Excellent hemostasis was observed. The fascial incision was reapproximated using 0 Vicryl in a running stitch. The subcutaneous tissue was irrigated, and reapproximated using 2-0 plain gut in a running stitch. The skin was reapproximated using 4-0 Vicryl in a running subcuticular stitch. Steri-Strips and a bandage were applied. The patient tolerated the procedure well, and will be taken to the recovery area in stable and good condition. I attest to the content of the Intraoperative Record and any orders documented therein. Any exceptions are noted below. OB Procedure Charges 88770
--- NOTE | 2022-09-23 16:31 | Anesthesia Procedure Note ---
Date of Service September 23, 2022 Anesthesia Post Epidural Note Vital Signs Vital Signs: Temp Pulse Resp BP Pulse Ox 37.0 C 127 H 20 144/95 H 99 09/23/22 12:37 09/23/22 16:29 09/23/22 15:22 09/23/22 16:29 09/23/22 16:27 Pain Intensity Lower Abdomen: Pain Intensity: 0 Notes Mental Status: alert / awake / arousable Nausea / Vomiting: adequately controlled Pain: adequately controlled Airway Patency, RR, SpO2: stable & adequate BP & HR: stable & adequate Hydration State: stable & adequate Neuraxial Anesthesia: was administered and sensory block is resolving Anesthetic Complications: no major complications apparent and Pt Satisfied with anesthetic care Epidural: Removed without complications and With tip intact
[2022-09-23] MEDS ORDERED: DIPHTHERIA/TETANUS/PERTUSSIS Vaccine (Tdap, Age 7+yrs) 0.5mL SYR/VL IM ONE (16:56)
[2022-09-23] MEDS ORDERED: SENNA 8.6 MG TAB PO PRN (16:56)
[2022-09-23] MEDS ORDERED: MAGNESIUM HYDROXIDE SUSP 30 ML UDC PO PRN (16:56)
[2022-09-23] MEDS ORDERED: BENZOCAINE 20% AER SPR 82.5 GM CAN EXT PRN (16:56)
[2022-09-23] MEDS ORDERED: HYDROCORTISONE ACETATE 25 MG SUPP PR PRN (16:56)
[2022-09-23] MEDS ORDERED: LACTATED RINGER'S 500 ML IV PRN (16:59)
[2022-09-23] MEDS ORDERED: MoRPHine SULFATE PF 1 MG/ML 10 ML AMP/VIAL INT SPINAL ONE (16:59)
[2022-09-23] MEDS ORDERED: NALOXONE HCL 0.08 MG in SYRINGE 1.8 ML IV PRN (16:59)
[2022-09-23] MEDS ORDERED: MoRPHine SULFATE 2 MG/ML CARP IV PRN (17:00)
[2022-09-23] MEDS ORDERED: DC INTRASPINAL MORPHINE SCH (17:00)
[2022-09-23] MEDS ORDERED: ONDANSETRON INJ 2 MG/ML 2 ML VIAL IV PRN (17:00)
[2022-09-23] MEDS ORDERED: SODIUM CHLORIDE 0.9% 1000ML 1,000 ML IV SCH (17:00)
[2022-09-23] MEDS ORDERED: MEPERIDINE HCL 25 MG/ML CARP/VIAL IV PRN (17:00)
[2022-09-23] MEDS ORDERED: PROMETHAZINE HCL 12.5 MG in SODIUM CHLORIDE 0.9% 50 ML IV PRN (17:00)
[2022-09-23] MEDS ORDERED: METOCLOPRAMIDE HCL 10 MG in SODIUM CHLORIDE 0.9% 50 ML IV PRN (17:00)
[2022-09-23] MEDS ORDERED: NO NARCOTICS OR SEDATIVES SCH (17:00)
[2022-09-23] MEDS ORDERED: HYDROmorphone INJ 0.5 MG/0.5 ML SYR IV PRN (17:00)
[2022-09-23] MEDS: KETOROLAC 30 MG/ML VIAL IV PRN (17:22)
[2022-09-23] MEDS: OXYTOCIN 30 UNITS in LACTATED RINGER'S 1,000 ML IV SCH (17:37)
--- NOTE | 2022-09-23 18:45 | Anesthesiology Progress Note ---
Date of Service September 23, 2022 Anesthesia Post Procedure Vital Signs Vital Signs: Temp Pulse Pulse Resp BP Pulse Ox 09/23/22 18:30 36.5 C 18 09/23/22 18:00 18 09/23/22 17:30 18 09/23/22 17:20 18 09/23/22 17:10 18 09/23/22 17:00 18 09/23/22 16:50 18 09/23/22 16:40 18 09/23/22 16:30 36.6 C 18 09/23/22 16:30 36.6 C 78 18 09/23/22 08:00 18 09/23/22 18:32 69 96 09/23/22 18:27 69 97 09/23/22 18:28 70 115/72 09/23/22 18:25 76 92 09/23/22 18:22 78 97 09/23/22 18:17 76 99 09/23/22 18:12 70 98 09/23/22 18:08 72 114/61 09/23/22 18:07 72 97 09/23/22 18:02 73 97 09/23/22 17:57 82 98 09/23/22 17:58 76 116/63 09/23/22 17:52 68 99 09/23/22 17:47 67 99 09/23/22 17:48 66 120/70 09/23/22 17:42 70 100 09/23/22 17:38 69 119/71 09/23/22 17:37 73 99 09/23/22 17:32 67 99 09/23/22 17:27 67 99 09/23/22 17:22 72 97 09/23/22 17:17 67 98 09/23/22 17:12 73 97 09/23/22 17:08 68 106/55 L 09/23/22 17:07 71 98 09/23/22 17:02 73 97 09/23/22 16:57 76 97 09/23/22 16:58 127 H 177/143 H 09/23/22 16:52 82 96 09/23/22 16:47 74 96 09/23/22 16:42 73 96 09/23/22 16:40 162/110 H 09/23/22 16:37 80 96 09/23/22 16:33 73 94 09/23/22 16:32 76 96 09/23/22 16:29 127 H 144/95 H 09/23/22 16:27 78 99 09/23/22 15:22 20 09/23/22 15:22 20 09/23/22 15:19 98 H 133/79 09/23/22 15:17 98 09/23/22 15:17 99 H 09/23/22 15:17 107 H 93 09/23/22 15:12 81 99 09/23/22 15:10 82 143/75 H 09/23/22 15:07 99 09/23/22 15:07 78 09/23/22 15:07 75 140/72 09/23/22 15:00 20 09/23/22 15:00 20 09/23/22 15:02 76 100 09/23/22 14:57 78 99 09/23/22 14:52 73 100 09/23/22 14:51 82 140/70 09/23/22 14:47 77 99 09/23/22 14:42 77 99 09/23/22 14:37 99 09/23/22 14:37 86 09/23/22 14:37 85 123/61 09/23/22 14:30 20 09/23/22 14:30 20 09/23/22 14:32 83 98 09/23/22 14:27 90 99 09/23/22 14:22 88 99 09/23/22 14:17 80 98 09/23/22 14:12 78 98 09/23/22 14:07 98 09/23/22 14:07 71 09/23/22 14:07 71 125/59 L 09/23/22 14:00 20 09/23/22 14:00 20 09/23/22 14:02 71 98 09/23/22 13:57 68 98 09/23/22 13:56 70 92 09/23/22 13:52 94 09/23/22 13:52 77 09/23/22 13:52 66 132/61 09/23/22 13:49 75 89 L 09/23/22 13:47 69 98 09/23/22 13:42 66 98 09/23/22 13:41 68 92 09/23/22 13:37 82 87 L 09/23/22 13:36 65 147/68 H 09/23/22 13:33 82 88 L 09/23/22 13:32 74 97 09/23/22 13:30 20 09/23/22 13:30 20 09/23/22 13:27 68 97 09/23/22 13:23 67 152/68 H 09/23/22 13:22 69 97 09/23/22 13:19 80 91 09/23/22 13:17 73 97 09/23/22 13:12 75 100 09/23/22 13:11 81 93 09/23/22 13:07 98 09/23/22 13:07 81 09/23/22 13:07 75 156/75 H 09/23/22 13:05 78 93 09/23/22 13:02 79 98 09/23/22 13:00 20 09/23/22 13:00 20 09/23/22 12:57 70 97 09/23/22 12:53 82 90 09/23/22 12:52 99 09/23/22 12:52 74 09/23/22 12:52 86 140/91 09/23/22 12:47 73 98 09/23/22 12:44 82 93 09/23/22 12:40 83 98 09/23/22 12:37 37.0 C 80 20 143/84 H 09/23/22 12:35 80 98 09/23/22 12:33 82 20 147/86 H 09/23/22 12:30 84 99 09/23/22 12:28 84 89 L 09/23/22 12:20 83 96 09/23/22 12:15 75 98 09/23/22 12:10 77 96 09/23/22 12:07 72 139/65 09/23/22 12:05 20 09/23/22 12:05 37.1 C 75 20 94 09/23/22 12:04 78 91 09/23/22 12:00 84 20 98 09/23/22 11:57 79 89 L 09/23/22 11:55 77 98 09/23/22 11:51 78 129/73 92 09/23/22 11:50 88 99 09/23/22 11:45 78 98 09/23/22 11:40 98 H 95 09/23/22 11:30 18 09/23/22 11:30 18 09/23/22 11:36 74 88 L 09/23/22 11:35 74 100 09/23/22 11:30 98 09/23/22 11:30 76 09/23/22 11:30 79 92 09/23/22 11:25 94 H 100 09/23/22 11:23 77 114/60 09/23/22 11:21 93 H 92 09/23/22 11:20 88 98 09/23/22 11:15 97 09/23/22 11:15 84 09/23/22 11:15 87 88 L 09/23/22 11:10 77 99 09/23/22 11:06 84 134/83 09/23/22 11:00 20 09/23/22 11:00 20 09/23/22 11:05 87 87 L 09/23/22 11:00 100 09/23/22 11:00 85 09/23/22 11:00 99 H 93 09/23/22 10:55 37.2 C 86 99 09/23/22 10:52 83 131/66 09/23/22 10:50 91 H 98 09/23/22 10:45 97 H 99 09/23/22 10:42 110 H 94 09/23/22 10:40 88 99 09/23/22 10:35 95 H 98 09/23/22 10:33 90 94 09/23/22 10:30 83 20 99 09/23/22 10:25 78 99 09/23/22 10:21 80 143/82 H 09/23/22 10:20 80 98 09/23/22 10:15 98 H 94 09/23/22 10:10 98 09/23/22 10:10 86 09/23/22 10:10 89 94 09/23/22 10:08 86 194/84 H 09/23/22 10:05 82 100 09/23/22 10:00 75 20 99 09/23/22 09:55 76 99 09/23/22 09:52 37.0 C 09/23/22 09:51 71 115/65 09/23/22 09:50 80 100 09/23/22 09:45 90 100 09/23/22 09:40 82 99 09/23/22 09:35 93 H 99 09/23/22 09:30 84 18 100 09/23/22 09:25 82 99 09/23/22 09:20 71 98 09/23/22 09:21 82 102/63 09/23/22 09:15 73 99 09/23/22 09:10 68 99 09/23/22 09:06 70 102/58 L 09/23/22 09:05 75 100 09/23/22 09:00 36.7 C 65 18 98 09/23/22 08:55 66 99 09/23/22 08:52 67 99/55 L 09/23/22 08:50 70 99 09/23/22 08:45 70 98 09/23/22 08:40 75 99 09/23/22 08:36 92 H 105/59 L 09/23/22 08:35 85 98 09/23/22 08:30 63 16 98 09/23/22 08:25 69 98 09/23/22 08:20 67 98 09/23/22 08:21 67 99/58 L 09/23/22 08:15 70 98 09/23/22 08:10 80 99 09/23/22 08:06 72 101/58 L 09/23/22 08:05 72 98 09/23/22 08:00 78 18 99 09/23/22 07:55 74 98 09/23/22 07:50 84 98 09/23/22 07:51 78 102/61 09/23/22 07:45 71 99 09/23/22 07:44 85 93 09/23/22 07:40 80 99 09/23/22 07:37 74 102/62 09/23/22 07:35 82 99 09/23/22 07:30 70 16 100 09/23/22 07:25 68 99 09/23/22 07:22 71 98/67 L 09/23/22 07:20 81 98 09/23/22 07:15 83 98 09/23/22 07:10 77 99 09/23/22 07:05 70 99 09/23/22 07:01 36.9 C 09/23/22 07:00 74 99 09/23/22 06:55 81 99 09/23/22 06:53 76 121/75 09/23/22 06:50 82 99 09/23/22 06:45 83 99 09/23/22 06:40 77 100 09/23/22 06:35 82 100 09/23/22 06:36 81 119/69 09/23/22 06:30 79 100 09/23/22 06:25 76 99 05 06:22 74 130/72 05 06:20 78 99 05 06:15 86 99 09/23/22 06:10 81 98 09/23/22 06:08 83 166/69 H 09/23/22 06:05 77 98 09/23/22 06:00 98 H 99 09/23/22 05:55 82 99 09/23/22 05:51 80 113/66 09/23/22 05:50 87 99 09/23/22 05:45 84 98 09/23/22 05:40 83 98 09/23/22 05:37 76 118/68 09/23/22 05:35 90 98 09/23/22 05:30 91 H 99 09/23/22 05:25 89 98 09/23/22 05:20 95 H 98 09/23/22 05:15 86 99 09/23/22 05:10 75 98 09/23/22 05:08 74 119/69 09/23/22 05:05 77 98 09/23/22 05:00 78 97 09/23/22 04:55 76 98 09/23/22 04:51 74 129/65 09/23/22 04:50 80 97 09/23/22 04:45 76 99 09/23/22 04:40 83 99 09/23/22 04:35 84 98 09/23/22 04:36 36.7 C 72 127/74 09/23/22 04:33 99 H 91 09/23/22 04:30 96 H 99 09/23/22 04:25 81 99 09/23/22 04:22 75 120/73 09/23/22 04:20 87 99 09/23/22 04:15 88 98 09/23/22 04:10 95 H 99 09/23/22 04:06 78 144/65 H 09/23/22 04:05 94 H 98 09/23/22 04:00 79 18 97 09/23/22 03:55 85 98 09/23/22 03:52 75 113/68 09/23/22 03:50 75 97 09/23/22 03:45 72 96 05 03:40 92 H 96 09/23/22 03:35 78 96 05/26/23 03:36 77 114/59 L 09/23/22 03:30 83 18 96 09/23/22 03:25 86 98 09/23/22 03:22 76 113/62 09/23/22 03:20 84 99 09/23/22 03:15 90 99 09/23/22 03:10 92 H 97 09/23/22 03:07 78 117/58 L 09/23/22 03:05 75 98 09/23/22 03:00 76 97 09/23/22 02:55 36.6 C 76 98 09/23/22 02:52 75 100/64 09/23/22 02:50 81 98 09/23/22 02:45 75 99 09/23/22 02:40 85 97 09/23/22 02:36 90 122/84 09/23/22 02:35 89 97 09/23/22 02:30 101 H 97 09/23/22 02:25 86 97 09/23/22 02:22 77 122/77 09/23/22 02:20 83 97 09/23/22 02:15 96 H 97 09/23/22 02:10 84 97 09/23/22 02:06 94 H 122/80 09/23/22 02:05 90 98 09/23/22 02:00 86 97 09/23/22 01:55 79 98 09/23/22 01:50 79 96 09/23/22 01:51 93 H 122/69 09/23/22 01:45 82 97 09/23/22 01:40 91 H 96 09/23/22 01:35 94 H 117/68 97 09/23/22 01:30 92 H 97 09/23/22 01:29 93 H 120/70 09/23/22 01:25 83 97 09/23/22 01:24 89 113/71 09/23/22 01:20 90 97 09/23/22 01:17 95 H 116/78 09/23/22 01:15 96 09/23/22 01:15 100 H 09/23/22 01:15 74 110/67 09/23/22 01:12 102 H 120/58 L 09/23/22 01:10 98 H 97 09/23/22 01:09 103 H 106/65 09/23/22 01:07 94 H 107/76 09/23/22 01:05 97 09/23/22 01:05 96 H 09/23/22 01:05 98 H 101/67 09/23/22 01:03 99 H 121/59 L 09/23/22 01:01 36.6 C 142/70 H 09/23/22 01:00 88 96 09/23/22 00:58 86 159/89 H 09/23/22 00:55 97 H 96 09/23/22 00:50 98 H 96 09/23/22 00:45 126 H 98 09/23/22 00:02 98 H 18 146/94 H 09/22/22 22:56 36.6 C 113 H 18 158/82 H 09/22/22 21:34 91 H 18 134/88 09/22/22 21:00 18 09/22/22 21:00 36.7 C 18 09/22/22 20:30 101 H 18 144/84 H 09/22/22 19:38 90 132/78 09/22/22 19:26 91 H 18 138/94 09/22/22 19:06 85 138/81 09/22/22 18:52 76 18 139/85 Pain Intensity Lower Abdomen: Pain Intensity: 2 Transfer of Care Handoff Completed per policy Notes Mental Status: alert / awake / arousable and participated in evaluation Nausea / Vomiting: adequately controlled Pain: adequately controlled Airway Patency, RR, SpO2: stable & adequate BP & HR: stable & adequate Hydration State: stable & adequate Neuraxial Anesthesia: was administered and sensory block is resolving Anesthetic Complications: no major complications apparent and Pt Satisfied with anesthetic care
[2022-09-23] MEDS: DOCUSATE SODIUM 100 MG CAP PO SCH (21:08)
[2022-09-23] MEDS: SIMETHICONE 80 MG CHEW PO SCH (21:08)
[2022-09-24] MEDS: KETOROLAC 30 MG/ML VIAL IV PRN ×2 (00:26→06:41)
[2022-09-24] MEDS: OXYTOCIN 30 UNITS in LACTATED RINGER'S 1,000 ML IV SCH (03:13)
[2022-09-24] MEDS ORDERED: CITRIC ACID/SODIUM CITRATE 15 ML UDC PO SCH (06:00)
--- NOTE | 2022-09-24 06:55 | Obstetrical Progress Note ---
Date of Service September 24, 2022 Assessment & Plan (1) care following delivery: Plan stable, denies complaints. will dc sneed and adv diet today, po pain meds once eating. no flatus yet. hgb pending, not drawn yet. ambulation once duramorph orders up. she is aware of imp to using scds to prevent future dvts. rh pos, ri, . Day #:: 1 Subjective Voiding: sneed catheter in place Passing Gas:: No Diet Tolerance:: clear liquids Lochia:: Small Feeding Type:: breast feeding in bed under duramorph orders. no pain control issues. no complaints. no n/v recently. no cp/sob Constitutional: + as per Subjective / HPI Physical Exam Constitutional WD/WN, vitals as above Respiratory normal respiratory effort, lungs clear to auscultation Cardiovascular Rate/Rhythm: regular rate and regular rhythm Gastrointestinal (Abdomen) Inspection/Auscultation: abdomen normal to inspection and + abdominal surgical incision (c/d/i with steris) Percussion/Palpation: abdomen soft Fundus firm 1cm down Musculoskeletal nt calves no edema Neurologic grossly normal Psychiatric A+Ox3, euthymic affect Results & Data Vital Signs (Past 12 Hours) Vital Signs Temp Pulse Resp BP Pulse Ox O2 Del Method 09/24/22 05:35 18 96 09/24/22 06:35 18 93 09/24/22 04:10 20 92 09/24/22 03:43 18 97 09/24/22 03:41 98.1 F 72 18 124/77 99 Room Air 09/24/22 02:53 18 96 09/24/22 01:44 18 98 09/24/22 00:30 20 96 09/23/22 23:15 18 98 09/23/22 23:55 98.2 F 78 18 131/86 98 Room Air 09/23/22 21:59 16 98 09/23/22 21:00 18 99 09/23/22 20:00 16 99 09/23/22 20:00 98.1 F 77 16 127/75 97 Room Air
[2022-09-24 07:47] LABS: Basophils # (auto) 0.03 K/uL (0-0.2); Basophils % (auto) 0.2 %; Eosinophils # (auto) 0.02 K/uL (0-0.50); Eosinophils % (auto) 0.1 %; Hematocrit (blood only) 31.4 % (37.0-47.0); Hemoglobin 10.7 g/dl (12.0-16.0); Immature Granulocytes # (auto) 0.09 K/uL (0.01-0.20); Immature Granulocytes % (auto) 0.6 %; Lymphocytes # (auto) 1.97 K/uL (1.2-3.4); Lymphocytes % (auto) 12.3 %; Mean Corpuscular Hemoglobin 31.1 pg (25.0-34.0); Mean Corpuscular Hgb Conc 34.1 g/dL (32.0-36.0); Mean Corpuscular Volume 91.3 fL (80.0-100.0); Mean Platelet Volume 11.6 fL (9.4-12.4); Monocytes # (auto) 0.72 K/uL (0.11-0.59); Monocytes % (auto) 4.5 %; Neutrophils # (auto) 13.21 K/uL (1.40-6.50); Neutrophils % (auto) 82.3 %; Platelet Count 125 K/uL (130-400); RDW Coefficient of Variation 13.1 % (11.5-14.5); RDW Standard Deviation 42.9 fL (36.4-46.3); Red Blood Count 3.44 M/uL (4.20-5.40); White Blood Count 16.04 K/ul (4.8-10.8)
[2022-09-24] MEDS: SIMETHICONE 80 MG CHEW PO SCH ×4 (09:11→20:36)
[2022-09-24] MEDS: FERROUS SULFATE 325 MG TAB PO SCH (09:11)
[2022-09-24] MEDS: DOCUSATE SODIUM 100 MG CAP PO SCH ×2 (09:11→20:36)
[2022-09-24] MEDS ORDERED: diphenhydrAMINE 50 MG/ML VIAL IV PRN (11:01)
[2022-09-24] MEDS ORDERED: PROMETHAZINE HCL 25 MG in SODIUM CHLORIDE 0.9% 50 ML IV PRN (11:01)
[2022-09-24] MEDS ORDERED: diphenhydrAMINE Capsule 25 MG CAP PO PRN (11:01)
[2022-09-24] MEDS ORDERED: ZOLPIDEM TARTRATE 5 MG TAB PO PRN (11:01)
[2022-09-24] MEDS ORDERED: ONDANSETRON INJ 2 MG/ML 2 ML VIAL IV PRN (11:01)
[2022-09-24] MEDS: IBUPROFEN 600 MG TAB PO PRN ×3 (12:44→20:38)
[2022-09-24] MEDS: oxyCODONE/ACETAMINOPHEN 5mg/325mg TAB PO PRN ×4 (12:44→21:37)
[2022-09-25] MEDS: IBUPROFEN 600 MG TAB PO PRN ×5 (00:55→21:27)
[2022-09-25] MEDS: oxyCODONE/ACETAMINOPHEN 5mg/325mg TAB PO PRN ×5 (04:55→21:27)
[2022-09-25 06:47] LABS: Hematocrit (blood only) 29.5 % (37.0-47.0); Hemoglobin 10.2 g/dl (12.0-16.0)
[2022-09-25] MEDS: DOCUSATE SODIUM 100 MG CAP PO SCH ×2 (08:06→21:27)
[2022-09-25] MEDS: FERROUS SULFATE 325 MG TAB PO SCH (08:06)
--- NOTE | 2022-09-25 09:35 | Obstetrical Progress Note ---
Date of Service September 25, 2022 Assessment & Plan (1) care following delivery: POD#2 doing well after . Ambulating, eating/drinking ok. Passing gas. Urinating ok. Incision clean/dry/intact. She'd like her regular zyrtec ordered. We discussed Rx for Percocet, will send #20 tabs to pharmacy. Anticipate DC home tomorrow. Routine care today. Subjective Ambulation: ambulating normally Voiding: no voiding problems Diet Tolerance:: regular diet Lochia:: Moderate Review of Systems All systems reviewed & are unremarkable except as noted in HPI & below Physical Exam Constitutional WD/WN, vitals as above no acute distress Respiratory normal respiratory effort Cardiovascular Rate/Rhythm: regular rate and regular rhythm Gastrointestinal (Abdomen) Inspection/Auscultation: abdomen normal to inspection; abdomen not distended Percussion/Palpation: abdomen soft Genitourinary OB Exam Abdomen: + fundal height Fundus: + firm; not tender Results & Data Vital Signs (Past 12 Hours) Vital Signs Temp Pulse Resp BP 09/25/22 05:00 36.5 C 81 18 124/68
[2022-09-25] MEDS: SIMETHICONE 80 MG CHEW PO SCH ×4 (09:47→21:26)
[2022-09-25] MEDS: CETIRIZINE HCL 10 MG TABLET PO SCH (12:50)
[2022-09-25] MEDS ORDERED: bisacodyL 10 MG SUPP PR PRN (16:43)
[2022-09-25] MEDS ORDERED: NIFEdipine 10 MG CAP PO STA (21:42)
[2022-09-25 22:02] LABS: Hematocrit (blood only) 28.4 % (37.0-47.0); Hemoglobin 9.9 g/dl (12.0-16.0); Mean Corpuscular Hemoglobin 31.9 pg (25.0-34.0); Mean Corpuscular Hgb Conc 34.9 g/dL (32.0-36.0); Mean Corpuscular Volume 91.6 fL (80.0-100.0); Mean Platelet Volume 10.7 fL (9.4-12.4); Platelet Count 149 K/uL (130-400); RDW Coefficient of Variation 13.2 % (11.5-14.5); RDW Standard Deviation 43.6 fL (36.4-46.3); White Blood Count 10.42 K/ul (4.8-10.8)
[2022-09-25 22:25] LABS: Albumin Globulin Ratio 0.9 (0.9-2); Albumin Level 2.6 gm/dl (3.4-5.0); BUN Creatinine Ratio 20.8 (10-20); Bilirubin,Total 0.2 mg/dl (0.2-1.0); Calcium 8.4 mg/dl (8.6-10.3); Creatinine Clr Calc Pharmacy 110.8 ml/min; Est GFR (African American) 130.2 ml/min; Est GFR (Non-African American) 112.4 ml/min; Globulin 2.8 gm/dl (2.5-4.0); Potassium 3.8 mmol/L (3.5-5.1); Total Protein 5.4 gm/dl (6.0-8.3)
[2022-09-26] MEDS: oxyCODONE/ACETAMINOPHEN 5mg/325mg TAB PO PRN ×4 (01:26→15:26)
[2022-09-26] MEDS: IBUPROFEN 600 MG TAB PO PRN ×5 (01:27→21:34)
[2022-09-26] MEDS: FERROUS SULFATE 325 MG TAB PO SCH (07:22)
[2022-09-26] MEDS: DOCUSATE SODIUM 100 MG CAP PO SCH ×2 (07:22→16:22)
[2022-09-26] MEDS: SIMETHICONE 80 MG CHEW PO SCH ×4 (07:23→21:25)
--- NOTE | 2022-09-26 08:22 | Obstetrical Progress Note ---
Date of Service September 26, 2022 Assessment & Plan (1) care following delivery: POD#3 doing well. Reviewed DC instructions. Rx was sent yesterday for pain medication. Followup 6w PP in office. Subjective Ambulation: ambulating normally Voiding: no voiding problems Diet Tolerance:: regular diet Lochia:: Moderate Review of Systems All systems reviewed & are unremarkable except as noted in HPI & below Physical Exam Constitutional WD/WN, vitals as above no acute distress Respiratory normal respiratory effort Cardiovascular Rate/Rhythm: regular rate and regular rhythm Gastrointestinal (Abdomen) Inspection/Auscultation: abdomen normal to inspection; abdomen not distended Percussion/Palpation: abdomen soft Genitourinary OB Exam Abdomen: + fundal height Fundus: + firm; not tender Results & Data Vital Signs (Past 12 Hours) Vital Signs Temp Pulse Resp BP BP Pulse Ox O2 Del Method 09/26/22 06:10 131/88 09/26/22 05:09 118/78 09/26/22 04:13 126/73 09/26/22 03:00 137/87 09/26/22 02:01 124/78 09/26/22 01:01 131/86 09/26/22 00:06 130/80 09/25/22 23:04 36.8 C 84 20 133/87 98 Room Air 09/25/22 22:18 138/91 09/25/22 21:26 165/112 H 163/109 H 09/25/22 20:56 161/106 H 171/110 H
[2022-09-26] MEDS: CETIRIZINE HCL 10 MG TABLET PO SCH (15:26)
[2022-09-26] MEDS ORDERED: NIFEdipine EXTENDED REL 30 MG TABCR PO STA ×2 (16:00→18:47)
[2022-09-27] MEDS: oxyCODONE/ACETAMINOPHEN 5mg/325mg TAB PO PRN (00:33)
[2022-09-27] MEDS: IBUPROFEN 600 MG TAB PO PRN ×3 (05:55→15:14)
--- NOTE | 2022-09-27 06:26 | Obstetrical Progress Note ---
Date of Service <William BoykinDi Myers DO - Last Filed: 09/27/22 07:35> September 27, 2022 Assessment & Plan <William BoykinDi Myers DO - Last Filed: 09/27/22 07:35> (1) care following delivery: - Feels well today. Eating well, voiding well, ambulating well. - Pain well controlled with ibuprofen 600mg Q4H PRN and Percocet Q6H. - Headache improved s/p motrin this morning. - Ab tenderness on PE, has not urinated in sometime. Will monitor fever curve prior to DC. - Routine care -- OOB, ambulation, diet progression as tolerated - After discharge will have 6 week follow-up with Dr. Shaikh. (2) hypertension: - Slightly elevated responding well to nifedipine - Will trial 60 mg nifedipine QAM and recheck BP today. - If normal BP, then can be D/C home and f/u for BP check at her post appointment. Day #:: 4 <Massiel James MD, FACOG - Last Filed: 09/27/22 07:45> (1) care following delivery: (2) hypertension: Subjective <William BoykinDi Myers DO - Last Filed: 09/27/22 07:35> Ambulation: ambulating normally Voiding: no voiding problems Passing Gas:: Yes Diet Tolerance:: regular diet Lochia:: Small Feeding Type:: breast feeding Current Pain Level(1-10): 2 Patient complains of GONZALEZ that is a 8/10 that started this morning. States that she has been having them off and on since this delivery. Improved after Motrin. Review of Systems Denies fever, chills, sweats Denies shortness of breath, difficulty breathing, chest pain, palpitations, chest pressure. Denies breast pain. Denies dysuria. Denies changes in vision. + headache Physical Exam <William Christine Myers DO - Last Filed: 09/27/22 07:35> General: Alert, oriented. No acute distress. Cardiac: Regular rate and rhythm, no murmurs/rubs/gallops. Respiratory: Clear to auscultation bilaterally a/p, no wheezes/rales/rhonchi. No increased work of breathing. Symmetrical chest rise. No respiratory distress. Abdomen: Soft, nondistended. Bowel sounds present, Tender to palpation Uterus: Uterine fundus firm, palpable 3 cm below umbilicus. Lower Extremities:slight bilateral LE swelling and non pitting edema. No deep calf pain. Gale's negative bilaterally. Results & Data <William Myers DO - Last Filed: 09/27/22 07:35> Vital Signs (Past 12 Hours) Vital Signs Temp Pulse Pulse Resp BP BP Pulse Ox 09/27/22 05:39 98 H 148/82 H 09/27/22 00:25 36.5 C 76 18 145/87 H 100 09/26/22 19:45 36.4 C L 74 18 145/97 H 98 09/26/22 21:43 64 144/96 H 09/26/22 18:45 156/102 H O2 Del Method 09/27/22 05:39 09/27/22 00:25 Room Air 09/26/22 19:45 Room Air 09/26/22 21:43 09/26/22 18:45 <Massiel James MD, FACOG - Last Filed: 09/27/22 07:45> Co-Signing Physician Notes Resident Physician Supervision Note: I was present with Dr. Myers during the history and exam. I discussed the case with the resident and agree with the findings and plan as documented in the note. Any exceptions or clarifications are listed here: pt now pod#4, eating, voiding, ambulating, pain well controlled. had elevated bps yest for which bp med initiated. on and off gonzalez, helped by motrin. no visual change or ruq pain or worsening swelling. due for dose of procardia xl at 9am. abd soft tender but appropriate, af, incision c/d/i with steris. no rebound, no guarding. ext nt calves. will see how bp responds to am meds and plan dc home if ok. md to hear about bps before pt to leave. watch temp curve, last wbc was wnl. Documented By: Massiel James MD, FACOG Resident Activity Tracking <William Myers DO - Last Filed: 09/27/22 07:35> Resident Involvement: Resident Care Provided Care Provided: OB Delivery
[2022-09-27] MEDS: FERROUS SULFATE 325 MG TAB PO SCH (08:47)
[2022-09-27] MEDS: DOCUSATE SODIUM 100 MG CAP PO SCH (08:48)
[2022-09-27] MEDS: SIMETHICONE 80 MG CHEW PO SCH ×2 (08:48→15:14)
[2022-09-27] MEDS: CETIRIZINE HCL 10 MG TABLET PO SCH (08:52)
[2022-09-27] MEDS ORDERED: NIFEdipine EXTENDED REL 30 MG TABCR PO SCH ×2 (09:00)
== END 2022-09-27 16:15 | disposition home or self-care (01) | DRG 788 ==
LOC: 4S1 07:43 → 4E2 09-23 18:51